=== PATIENT | female | born 1945 | race Caucasian/White ===

== ENCOUNTER → 2018-07-06 14:50 | Outpatient (CLI) | payer MEDICARE, BC, SELFPAY ==
--- NOTE | 2018-07-06 | DI.MG.S_ITS ---
BILATERAL DIGITAL SCREENING MAMMOGRAM 3D/2D WITH CAD: 07/06/2018 CLINICAL: Routine screening. Family history of breast cancer. Comparison is made to exams dated: 07/04/2017 mammogram, 07/02/2016 mammogram, and 06/06/2015 mammogram - [facility]. There are scattered fibroglandular elements in both breasts. Current study was also evaluated with a Computer Aided Detection (CAD) system. No significant masses, calcifications, or other findings are seen in either breast. There has been no significant interval change. IMPRESSION: NEGATIVE There is no mammographic evidence of malignancy. A 1 year screening mammogram is recommended. This exam was interpreted at Station ID: [id number]. NOTE: For mammograms, a report in lay terms will be sent to the patient. Approximately 15% of breast malignancies will not be visualized mammographically. In the management of a palpable breast mass, a negative mammogram must not discourage biopsy of a clinically suspicious lesion. Electronically Signed By: Ray bowens/joshua:07/07/2018 13:00:26 letter sent: Normal Exam ACR BI-RADS Category 1: Negative 3341F
== END ==
PROVIDERS: PCP Physician Assistant; Visit Provider Physician Assistant
DX: Z12.31 Encounter for screening mammogram for malignant neoplasm of breast (principal); Z80.3 Family history of malignant neoplasm of breast
CPT/HCPCS: 77063; 77067

== ENCOUNTER → 2018-09-22 07:51 | Outpatient (CLI) | payer MEDICARE, BC, SELFPAY ==
[2018-09-22 08:54] LABS: Add Manual Diff / Slide Review NO; Basophils Absolute Auto 100 /uL (0-100); Basophils Percent Auto 0.8 % (0-2); Eosinophils Absolute Auto 200 /uL (0-450); Eosinophils Percent Auto 2.9 % (2-4); Hematocrit 42.2 % (36-46); Hemoglobin 14.2 g/dL (12.0-16.0); Lymphocytes Absolute Auto 1800 /uL (1100-4500); Lymphocytes Percent Auto 29.5 % (25-40); Mean Corpuscular HGB Conc 33.7 % (30-36); Mean Corpuscular Hemoglobin 29.9 PG (26-34); Mean Corpuscular Volume 88.8 fL (80-100); Monocytes Absolute Auto 700 /uL (0-900); Monocytes Percent Auto 10.8 % (3-14); Neutrophils Absolute Auto 3400 /uL (1500-7000); Platelet Count 336 X10^3/uL (150-400); Red Blood Cell Count 4.75 X10^6/uL (4.0-5.2); Red Cell Distribution Width 13.7 % (11.6-14.8); White Blood Cell Count 6.1 X10^3/uL (4.5-11.0)
[2018-09-22 09:08] LABS: Alanine Aminotransferase 20 IU/L (9-52); Albumin 4.7 g/dL (3.5-5.0); Albumin Globulin Ratio 1.5 (1.0-2.8); Alkaline Phosphatase 110 U/L (38-126); Aspartate Aminotransferase 22 IU/L (14-36); BUN Creatinine Ratio 35.7 (6-22); Bilirubin Total 0.6 mg/dL (0.2-1.3); Blood Urea Nitrogen 25 mg/dL (7-17); Calcium 9.6 mg/dL (8.4-10.2); Carbon Dioxide 29 mmol/L (22-32); Chloride 104 mmol/L (98-107); Cholesterol 204 mg/dL (140-199); Estimated Glomerular Filt Rate > 60.0 mL/min (>60); Globulin 3.2 g/dL (1.7-4.1); Glucose 105 mg/dL (80-110); HDL Cholesterol 49 mg/dL (40-60); HEMOLYSIS < 15 (0-50); LDL Cholesterol Calculated 115 mg/dL (<100); Potassium 4.1 mmol/L (3.4-5.1); Sodium 141 mmol/L (137-145); Total Protein 7.9 g/dL (6.3-8.2); Triglycerides 198 mg/dL (35-150)
[2018-09-22 09:38] LABS: Thyroid Stimulating Hormone 1.86 uIU/mL (0.47-4.68)
== END ==
PROVIDERS: PCP Physician Assistant; Visit Provider Physician Assistant
DX: I10 Essential (primary) hypertension (principal); E78.5 Hyperlipidemia, unspecified; E03.9 Hypothyroidism, unspecified
CPT/HCPCS: 36415; 80053; 80061; 84443; 85025

== ENCOUNTER → 2019-01-11 12:20 | Outpatient (CLI) | payer MEDICARE, BC, SELFPAY ==
[2019-01-11 12:34] LABS: RBC Urine None Seen (0-5/HPF)
[2019-01-11 13:05] LABS: Add Manual Diff / Slide Review NO; Basophils Absolute Auto 0 /uL (0-100); Basophils Percent Auto 0.6 % (0-2); Eosinophils Absolute Auto 100 /uL (0-450); Eosinophils Percent Auto 0.9 % (2-4); Hematocrit 40.2 % (36-46); Hemoglobin 13.8 g/dL (12.0-16.0); Lymphocytes Absolute Auto 1600 /uL (1100-4500); Lymphocytes Percent Auto 20.4 % (25-40); Mean Corpuscular HGB Conc 34.3 % (30-36); Mean Corpuscular Hemoglobin 30.5 PG (26-34); Mean Corpuscular Volume 89.1 fL (80-100); Monocytes Absolute Auto 700 /uL (0-900); Monocytes Percent Auto 9.5 % (3-14); Neutrophils Absolute Auto 5400 /uL (1500-7000); Neutrophils Percent Auto 68.6 % (50-75); Platelet Count 301 X10^3/uL (150-400); Red Blood Cell Count 4.52 X10^6/uL (4.0-5.2); Red Cell Distribution Width 12.9 % (11.6-14.8); White Blood Cell Count 7.8 X10^3/uL (4.5-11.0)
[2019-01-11 13:26] LABS: Alanine Aminotransferase 25 IU/L (<35); Albumin 4.8 g/dL (3.5-5.0); Albumin Globulin Ratio 1.8 (1.0-2.8); Alkaline Phosphatase 124 U/L (38-126); Aspartate Aminotransferase 25 IU/L (14-36); BUN Creatinine Ratio 33.8 (6-22); Bilirubin Total 0.5 mg/dL (0.2-1.3); Blood Urea Nitrogen 27 mg/dL (7-17); Calcium 9.9 mg/dL (8.4-10.2); Carbon Dioxide 29 mmol/L (22-32); Chloride 104 mmol/L (98-107); Cholesterol 224 mg/dL (140-199); Estimated Glomerular Filt Rate > 60.0 mL/min (>60); Globulin 2.7 g/dL (1.7-4.1); Glucose 103 mg/dL (80-110); HDL Cholesterol 41 mg/dL (40-60); HEMOLYSIS < 15 (0-50); LDL Cholesterol Calculated 123 mg/dL (<100); Potassium 4.3 mmol/L (3.4-5.1); Sodium 142 mmol/L (137-145); Total Protein 7.5 g/dL (6.3-8.2); Triglycerides 298 mg/dL (35-150)
[2019-01-11 13:36] LABS: Appearance Urine UA CLEAR; Bilirubin Urine UA NEGATIVE (NEGATIVE); Color Urine UA YELLOW; Glucose Urine UA NEGATIVE (Negative); Ketones Urine UA NEGATIVE (NEGATIVE); Leukocyte Esterase Urine UA 1+ (NEGATIVE); Nitrite Urine UA NEGATIVE (Negative); Occult Blood Urine UA NEGATIVE (Negative); Protein Urine UA NEGATIVE (Negative); Specific Gravity Urine UA <=1.005 (1.000-1.035); Urobilinogen Urine UA 0.2 E.U./dL (0.2)
[2019-01-11 14:06] LABS: pH Urine UA 5.5 (4.5-8.0)
[2019-01-11 14:18] LABS: TSH w/ Reflex to FT4 1.23 uIU/mL (0.47-4.68)
[2019-01-11 14:19] LABS: Amorphous Sediment Urine 1+; Bacteria Urine Few (2-10); Culture Indicated Urine Specimen Cultured; Squamous Epithelial Cell Urine 1-5 /HPF (0-5/HPF); WBC Urine 1-5/HPF (0-5/HPF)
[2019-01-11 16:54] LABS: Protein (Total) Urine Random 10 mg/dL (0-12); Protein Creatinine Ratio Urine 0.19 GRAM/24H
[2019-01-15 12:03] LABS: Aldosterone/Renin Activity Rat 12.5 Ratio (0.9-28.9)
== END ==
PROVIDERS: PCP Physician Assistant; Visit Provider Physician Assistant
DX: I70.1 Atherosclerosis of renal artery (principal); I10 Essential (primary) hypertension; E78.2 Mixed hyperlipidemia; E03.9 Hypothyroidism, unspecified
CPT/HCPCS: 36415; 80053; 80061; 81001; 82088; 82570; 84156; 84244; 84443; 85025; 87086

== ENCOUNTER → 2019-09-23 11:42 | Outpatient (CLI) | payer MEDICARE, OTHER, SELFPAY ==
--- NOTE | 2019-09-23 | DI.MG.S_ITS ---
BILATERAL DIGITAL SCREENING MAMMOGRAM 3D/2D WITH CAD: 09/23/2019 CLINICAL: Routine screening. Family history of breast cancer. Comparison is made to exams dated: 07/06/2018 mammogram - [facility], 07/04/2017 mammogram, and 07/02/2016 mammogram - [facility]. There are scattered fibroglandular elements in both breasts. Current study was also evaluated with a Computer Aided Detection (CAD) system. No significant masses, calcifications, or other findings are seen in either breast. There has been no significant interval change. IMPRESSION: NEGATIVE There is no mammographic evidence of malignancy. A 1 year screening mammogram is recommended. This exam was interpreted at Station ID: [id number]. NOTE: For mammograms, a report in lay terms will be sent to the patient. Approximately 15% of breast malignancies will not be visualized mammographically. In the management of a palpable breast mass, a negative mammogram must not discourage biopsy of a clinically suspicious lesion. Electronically Signed By: Herve burch/joshua:09/23/2019 16:40:27 letter sent: Normal Exam ACR BI-RADS Category 1: Negative 3341F
== END ==
PROVIDERS: PCP Physician Assistant; Referring Provider Physician Assistant; Visit Provider Physician Assistant
DX: Z12.31 Encounter for screening mammogram for malignant neoplasm of breast (principal); Z80.3 Family history of malignant neoplasm of breast
CPT/HCPCS: 77063; 77067

== ENCOUNTER → 2019-10-16 14:49 | Outpatient (CLI) | payer MEDICARE, OTHER, SELFPAY ==
[2019-10-17 19:20] LABS: COVID19 Sendout Not Detected (Not Detect)
== END ==
PROVIDERS: PCP Physician Assistant; Visit Provider Nurse Practitioner
DX: Z11.59 Encounter for screening for other viral diseases (principal)
CPT/HCPCS: 87635

== ENCOUNTER 2019-10-19 08:48 | Day surgery (SDC) | payer MEDICARE, OTHER, SELFPAY ==
[2019-10-19] VITALS (7 sets, daily range): BP systolic 98–159; BP diastolic 51–79; PULSE 65–85; RESP 10–20; TEMP 36.6–37.1; O2SAT 95–99; BMI 26.6
[2019-10-19] MEDS: LACTATED RINGERS 1,000 ML 150 ML IV (09:25)
--- NOTE | 2019-10-19 09:49 | PM.HP.1 ---
History of Present Illness History of Present Illness Date Patient Seen: 10/19/19 Time Patient Seen: 09:35 Chief complaint: SCREENING COLONOSCOPY Narrative: The patient is a woman here for screening colonoscopy. Her last exam was 6 years ago. She has a personal history of polyps Patient History Medical History (Updated 10/19/19 @ 09:50 by Nayan Rome MD) Hypertension (Acute) Hypothyroidism (acquired) (Acute) Surgical History Status post tubal ligation Family & Social History Social History: household members spouse Tobacco & Substance use: Smoking Status Never smoker alcohol intake frequency a few times a week Substance Use Type does not use Meds Home Medications and Allergies Home Medications Medication Instructions Recorded Confirmed Type CA PANTOTHENATE/FOLIC ACID/VIT 1 tab PO QDAY #0 01/15/11 History (MULTIVITAMIN) meloxicam [Mobic] 7.5 mg PO AMCC #90 01/21/11 10/19/19 Rx lorazepam [Ativan] 0.5 mg PO PRN #30 02/04/12 10/19/19 Rx metoprolol succinate [Toprol XL] 200 mg PO QDAY #90 02/04/12 10/19/19 Rx levothyroxine 200 mcg PO QDAY #90 06/12/12 10/19/19 Rx AMLODIPINE BESYLATE (#NORVASC) 7.5 mg PO QDAY 10/19/19 10/19/19 History Allergies Allergy/AdvReac Type Severity Reaction Status Date / Time Sulfa (Sulfonamide Allergy Severe THROAT Unverified 06/04/17 11:46 Antibiotics) SWELLING Penicillins Allergy Intermediate HIVES Unverified 06/04/17 11:46 adhesive Allergy Mild Rash Unverified 10/19/19 09:05 hydrochlorothiazide AdvReac Mild RASH Unverified 10/19/19 09:05 pravastatin AdvReac Mild MUSCLE PAIN Unverified 06/04/17 11:46 simvastatin AdvReac Mild VOMITING Unverified 06/04/17 11:46 Review of Systems Review of Systems Narrative: Very hard of hearing. Wears hearing aids. ROS: Yes All systems reviewed with the patient and are negative except as otherwise documented Exam Vital Signs (past 8 hours): - 10/19/19 09:10 Temperature 97.8 F Pulse Rate 78 Respiratory Rate 16 Blood Pressure 152/76 H Pulse Oximetry 99 Oxygen Delivery Method Room Air Narrative Exam Narrative: Pleasant cooperative patient no apparent distress. Lungs are clear to auscultation. No rales or rhonchi. Heart regular rate and rhythm no murmur gallop. Abdomen is soft nontender without mass. No obvious hernias. Patient is alert and oriented x3. Assessment & Plan Assessment & Plan narrative: The patient for a screening colonoscopy. I have discussed the procedure with them. Risks of bleeding, perforation which would necessitate major operation, failure to find remove all lesions, the potential tattoo were all discussed. All questions were answered. They wished to proceed.
--- NOTE | 2019-10-19 09:51 | PM.PREOP ---
Pre-operative Note COVID-19 COVID-19 status: Negative Result date/Date tested (Pos, Neg/Pending): 10/16/19 Interval Note History & Physical reviewed/Exam performed by Physician: Yes Changes to H&P: No ASA Class (for procedural sedation): II
[2019-10-19] MEDS: fentaNYL 250 MCG/5 ML INJ IV (10:07)
[2019-10-19] MEDS: MIDAZOLAM 5 MG/5 ML VIAL IV (10:07)
--- NOTE | 2019-10-19 10:24 | PM.OP.ENDO ---
Operative Date/Time/Diagnoses Date of procedure: 10/19/19 Time of procedure: 10:24 Pre-op diagnosis: History of polyps Post-op diagnosis: same Procedure & Clinicians Study performed: Colonoscopy Same procedure as scheduled: Yes Indications: Screening. History of polyps. Last exam 6 years ago. Surgeon: Nayan Rome Procedure Notes SCOAP/Timeout: Performed Procedure in detail: The patient was placed in the left lateral decubitus position and underwent IV sedation directed by the surgeon consisting of fentanyl and Versed. Digital exam was unremarkable. The scope was inserted and advanced through the rectum into the sigmoid, descending, transverse, and ascending colon. The patient had some tortuosity which required applying pressure to her abdominal wall in order to reach the cecum.. The cecum was reached identified by the ileocecal valve and the appendiceal opening. The ileocecal valve was briefly cannulated. The terminal ileum was normal in appearance. The scope was gradually brought out. No Polyps were found. The scope ultimately was retroflexed in the rectum. The appearance was remarkable for internal hemorrhoids without ulceration.. The scope was removed and the patient tolerated the procedure well. The prep was very good Scope withdrawal time: 8 minutes Sedation minutes: 29 Specimen(s): none sent Complications: none Impression: Normal exam Post-procedure Recommendations: Colonscopy in 5 years (Due to history of polyps) Follow up: as needed Disposition: PACU
--- NOTE | 2019-10-19 10:50 | SUR.PHASEI ---
report and handover to Allison
== END 2019-10-19 11:10 | disposition home or self-care (01) ==
PROVIDERS: PCP Physician Assistant; Referring Provider Physician Assistant; Visit Provider Specialist
PROC: 0DJD8ZZ Inspection of Lower Intestinal Tract, Via Natural or Artificial Opening Endoscopic (ICD-10-PCS; CPT 45378; principal; 2019-10-19 09:45)
DX: Z12.11 Encounter for screening for malignant neoplasm of colon (principal); Z86.010 Personal history of colon polyps; K64.8 Other hemorrhoids; I10 Essential (primary) hypertension; E03.9 Hypothyroidism, unspecified
CPT/HCPCS: G0105; 99152; 99153; J2250; J3010

== ENCOUNTER → 2019-11-30 11:33 | Outpatient (CLI) | payer MEDICARE, OTHER, SELFPAY ==
[2019-12-01 07:47] LABS: COVID19 Sendout Not Detected (Not Detect)
== END ==
PROVIDERS: PCP Physician Assistant; Visit Provider Physician Assistant
DX: Z11.59 Encounter for screening for other viral diseases (principal)
CPT/HCPCS: 87635

== ENCOUNTER 2019-12-03 09:36 | Day surgery (SDC) | payer MEDICARE, OTHER, SELFPAY ==
[2019-12-02 13:44] VITALS: BMI 26.8
[2019-12-03] VITALS (14 sets, daily range): BP systolic 133–172; BP diastolic 54–90; PULSE 68–88; RESP 9–19; TEMP 35.9–37.2; O2SAT 93–98; BMI 26.8
[2019-12-03] MEDS: LACTATED RINGERS 1,000 ML 100 ML IV ×2 (10:15→14:20)
--- NOTE | 2019-12-03 11:40 | PM.PREOP ---
Pre-operative Note COVID-19 COVID-19 status: Negative Result date/Date tested (Pos, Neg/Pending): 11/30/19 Interval Note History & Physical reviewed/Exam performed by Physician: Yes Changes to H&P: No
[2019-12-03] MEDS: CEFAZOLIN 2 GM/100 ML FROZ.PIGGY IV (12:06)
--- NOTE | 2019-12-03 12:35 | SUR.OPER ---
Lithotomy on padded OR bed, head on pillow, arms secured on padded arm boards at <90 degrees abduction. Legs secured in padded yellow fins stirrups.
[2019-12-03] MEDS: BUPIVACAINE 0.5% W/ EPI (PF) 30 ML VIAL INJ (12:54)
[2019-12-03] MEDS: SODIUM CHLORIDE 0.9% FLUSH 10 ML IV (12:55)
--- NOTE | 2019-12-03 13:14 | P.OP_ITS ---
Operative Date/Time/Diagnoses Date of procedure: 12/03/19 Time of procedure: 13:15 Pre-op diagnosis: Uterovaginal prolapse Post-op diagnosis: same Procedure & Clinicians Procedure: Anterior and posterior repair with sacrospinous ligament fixation Same procedure as scheduled: Yes Indications: Symptomatic uterovaginal prolapse Surgeon: Jaimie Worley Aquaculture Farmer: Aissatou Bruce Anesthesia Type: General Operative Notes Findings: First-degree cystocele, first-degree rectocele, prolapse of the uterus to 1 cm from the hymen. Closure Type: primary Specimen(s): none sent Applied: catheter (Oconnell) and other (Vaginal packing) Estimated Blood Loss (mL): 20 Blood products transfused: none Procedure in detail: Patient was brought to the operating room where she underwent general anesthesia. She was placed in low Yellofin stirrups and prepped and draped in the usual sterile fashion. Warming was in place. 2 g of Ancef were in prior to beginning of the case. Pulsatile stockings were in place and functional. A check system was reviewed with the staff in the room prior to beginning the case. A Oconnell catheter was placed. The area of the cystocele and the rectocele was injected with a dilute solution of Marcaine with epinephrine. Incision was made over the cystocele with a scalpel. Dissection was undertaken laterally with sharp and blunt dissection. Plicating sutures of 0 Vicryl suture were placed. The vaginal incision was repaired with running 2 0 Vicryl suture. An incision was made over the rectocele with a scalpel. Dissection was undertaken laterally. 0 Prolene suture with the Capio passer was placed through the uterosacral ligament on the right side and sutured to the underside of the cervix. A suture of 0 Prolene was also placed through the uterosacral ligament on the left side and sutured to the underside of the vaginal tissue on the left. A finger was placed in the rectum to be sure there were no sutures placed through the rectal mucosa. The uterosacral sutures were tightened down and the vaginal incision was closed with 2-0 Vicryl suture. Vaginal packing was placed in the vagina and the Oconnell left in place. Patient went to recovery room in good condition. Complications: none Post-operative Condition: stable Disposition: observation (Vaginal packing and Oconnell will be removed in a.m.. Home after bladder trial) Plan for aftercare: Remove Oconnell and vaginal packing in a.m. and check postvoid residual. Home after.
--- NOTE | 2019-12-03 15:47 | PC.NURSE ---
Day Shift- Report rec'd from PACU by DIGNA Welsh Coordinator. Pt arrived to unit room 202 at 1350 via bed, unwitnessed by this RN. DIGNA Welsh Coordinator at bedside handoff with PACU. Pt seen by this RN at 1420. A&OX4, oriented to call light. Rates 2/10 pelvic pressure, denies nausea, shortness of breath, chest pain or pressure. Urinary catheter in place draining clear light yellow urine, vaginal packing in place. Peripad under pelvic area with small amount of light colored yellow drainage. Calf SCD's on to BLE, pt instructed to perform ankle waves. IVF started per order to right wrist PIV. Pt has tolerated water and crackers. Pt's Tam in room, instructed to keep mask on at all times while visiting. No other voiced concerns, call light within reach.
[2019-12-03] MEDS: DOCUSATE 250 MG CAPSULE PO (20:44)
[2019-12-03] MEDS: OXYCODONE/ACETAMINOPHEN 5/325 TABLET 2 TAB PO (23:52)
[2019-12-04] MEDS: LORazepam 0.5 MG TABLET PO (00:56)
[2019-12-04 01:00] VITALS: O2SAT 93
[2019-12-04] MEDS: LEVOTHYROXINE 100 MCG TABLET 200 MCG PO (05:22)
[2019-12-04] MEDS: OXYCODONE/ACETAMINOPHEN 5/325 TABLET 2 TAB PO (05:29)
[2019-12-04 05:49] VITALS: BP 136/75; PULSE 76; RESP 16; TEMP 36.2; O2SAT 96
[2019-12-04 07:30] VITALS: O2SAT 97
[2019-12-04 08:00] VITALS: BP 147/71; PULSE 80; RESP 18; TEMP 36.7; O2SAT 96
--- NOTE | 2019-12-04 08:44 | PM.DS.1 ---
History of Present Illness History of Present Illness Date Patient Seen: 12/04/19 Time Patient Seen: 08:44 Date of Onset of Symptoms: 12/04/19 Chief complaint: ANTERIOR/POSTERIOR REPAIR, SACROSPINOUS *OPB* Narrative: Patient underwent a anterior and posterior repair with sacrospinous ligament fixation for partial uterovaginal prolapse. Discharge Providers Provider Discharge Date: 12/04/19 Primary care physician: Maria Eugenia Barreto PA-C Discharge provider: Jaimie Worley MD Summary Hospital Course Discharge Diagnosis: Partial uterovaginal prolapse Hospital Course: Patient underwent an anterior and posterior repair with sacrospinous ligament fixation on 12/03/2019. She had vaginal packing and Oconnell catheter placed postoperative. The packing and catheter removed on 12/04/2019. Patients post void residual was 15cc. Status at Discharge Cognitive/behavioral status at discharge: oriented Functional status at discharge: independent ambulation Overall status at discharge: patient is progressing back to baseline Time Spent with Patient Time spent: Less than 30 minutes Exam Vital Signs (past 8 hours): - 12/04/19 01:00 12/04/19 05:49 Temperature 97.2 F L Pulse Rate 76 Respiratory Rate 16 Blood Pressure 136/75 Pulse Oximetry 93 96 Oxygen Delivery Method Room Air Oxygen Flow Rate 0 Narrative Exam Narrative: Patient's abdomen is soft, nontender. Vaginal packing was removed and had only a small amount of blood on it. Extremities without edema and nontender. Objective Labs Result Diagrams: 12/04/19 07:30 Discharge Assessment & Plan Assessment and Plan Assessment: Partial uterovaginal prolapse status post anterior and posterior repair with sacrospinous ligament fixation Discharge Plan Discharge Plan Patient Disposition: Home Discharge Med Rec/Prescriptions Prescriptions: Continued meloxicam [Mobic] 7.5 MG tablet 7.5 mg PO AMCC Qty: 90 RF: 3 metoprolol succinate [Toprol XL] 200 MG tablet extended release 24 hr 200 mg PO QDAY Qty: 90 RF: 3 lorazepam [Ativan] 0.5 MG tablet 0.5 mg PO PRN Qty: 30 RF: 3 levothyroxine 200 MCG tablet 200 mcg PO QDAY Qty: 90 RF: 3 atorvastatin 40 mg tablet 40 mg PO DAILY RF: 0 multivitamin Tablet 1 tab PO DAILY RF: 0 oxycodone-acetaminophen 5-325 mg tablet 2 tab PO Q4-6H PRN (Reason: pain) Qty: 30 RF: 0 amlodipine 5 mg Tablet 7.5 mg PO DAILY Qty: 0 RF: 0 Follow up/Referrals: Maria Eugenia Barreto PA-C [Primary Care Provider] - Jaimie Worley MD [Physician] - As previously scheduled Discharge Orders: Discharge (Order); Ordered 12/04/19 Ordered By: Jaimie Worley Provider Discharge Instructions Diet: Regular Activity: No lifting over 20 lb or anything in vagina for 6 weeks Skin/Wound/Dressing Care Report to your healthcare provider any signs of infection, such as:: chills, fever and increased pain Visit Report/Discharge Packet Instructions: DI for Cystocele and Rectocele Repair, DI for Constipation, How to Prevent Falls, DI for Sacrospinous Fixation Discharge Data Primary Care Provider: Maria Eugenia Barreto Attending Provider: Jaimie Worley
[2019-12-04] MEDS: MELOXICAM 7.5 MG TABLET PO (08:49)
[2019-12-04] MEDS: METOPROLOL ER 50 MG TABLET 200 MG PO (08:49)
[2019-12-04] MEDS: DOCUSATE 250 MG CAPSULE PO (08:50)
[2019-12-04 08:55] LABS: Add Manual Diff / Slide Review NO; Basophils Absolute Auto 0 /uL (0-100); Basophils Percent Auto 0.1 % (0-2); Eosinophils Absolute Auto 0 /uL (0-450); Hemoglobin 12.5 g/dL (12.0-16.0); Lymphocytes Absolute Auto 1400 /uL (1100-4500); Lymphocytes Percent Auto 8.8 % (25-40); Mean Corpuscular HGB Conc 33.8 % (30-36); Mean Corpuscular Hemoglobin 31.2 PG (26-34); Mean Corpuscular Volume 92.4 fL (80-100); Monocytes Absolute Auto 1000 /uL (0-900); Monocytes Percent Auto 6.6 % (3-14); Neutrophils Absolute Auto 13200 /uL (1500-7000); Neutrophils Percent Auto 84.5 % (50-75); Platelet Count 319 X10^3/uL (150-400); Red Cell Distribution Width 12.5 % (11.6-14.8); White Blood Cell Count 15.7 X10^3/uL (4.5-11.0)
--- NOTE | 2019-12-04 09:29 | CM.DANOTE ---
Patient is a 74 year old female who was admitted on 12/03/19 for Vaginal Prolapse surgery. Pt has M[place] and [place] for [place] and her PCP is Maria Eugenia ZURITA. EMR was reviewed. Per MD, pt tolerated procedure well and medically stable to d/c later today and meyer cath removed to determine if pt can void independently or will need to d/c with cath. SW met bedside with patient and explained role and she confirms she lives at home in [place] with spouse and is quite active and independent at baseline and states spouse and family can assist at d/c if needed. Pt denies any hx of HH or SNF and does not feel she will have needs at d/c and comfortable with d/c home later today with or without meyer cath. Plan: SW to follow for pt d/c home later today via spouse POV and possible meyer cath. No SW needs at this time. ZARINA Jaffe Discharge Planning/Care Management CM Discharge Assessment Start: 12/04/19 09:24 Freq: Status: Active Protocol: Document 12/04/19 09:25 BF (Rec: 12/04/19 09:29 BF [id number]) Discharge Planning Assessment Assigned Concrete Vibrator Operator ZARINA Schultz DPOA/Assigned Designee Name spouse Tam Contact Information [phone] Advance Directives? No Advance Directives on File No History Provided By Patient,Medical Record Has Patient been admitted in last 30 No days? Prior Living Arrangements House Household Members spouse Type of transporation used prior to Drives own vehicle admit Independent with ADL's Yes Is patient alert and oriented? Yes Caregiver for Another No Comment Home no needs Barriers to Discharge No Discharge Plan Home Transportation Arrangement Pt's spouse to provide transport home Referrals Initiated None needed Whiteboard Updated in Patient Room with Yes name and ext. # of Concrete Vibrator Operator Review Status In Process Please Provide Date Initial DC 12/04/19 Assessment Was Performed Next Review Type Continued Stay Review Pre-Anesthesia Assessment Start: 12/02/19 13:44 Freq: Status: Complete Protocol: Document 12/02/19 13:44 CAB (Rec: 12/02/19 13:51 CAB [id number]) Pre-Anesthesia Assessment Patient Information Reviewed Via Chart Review Comment COVID screen @ 11/30/19 Negative Primary Care Provider Maria Eugenia Barreto Seen Specialist in Last 12 Months Yes Specialist Seen General surgeon,Sheet Turner Primary Language Singaporean Java Developer Required No Height 165.1 cm Weight 73.028 kg Body Mass Index (BMI) 26.8 Hearing Ability Hard of Hearing,Use of Hearing Aid Barriers to Learning None Hx Anesthesia Reactions No Hx Family Anesthesia Reaction No Hx Malignant Hyperthermia No Hx Blood Transfusion Reaction No Anesthesia Review Requested No Cnc Machinist No alcohol intake current alcohol intake frequency a few times a week Smoking Status Never smoker Substance Use Type does not use Patient is completely paralyzed or No completely immobile Mental Status Oriented to own ability Is patient on oxygen? No Does patient have VERA/SOB No Hx Sleep Apnea No CPAP/BIPAP use not prescribed Currently Taking a Beta Waldemar Yes: Metoprolol Hx Chest Pain No Hx SOB No Hx Syncope or Dizziness No Anti-Coagulant Therapy No Has a Cleat Thrower No Cardiac Testing No Hx Pacemaker/ICD No Pacemaker Rep Required? No Cardiac Clearance Received Not Applicable Bladder Pattern Incontinent, Stress,Urgency Urinary Catheter Present No Hx Urinary Self Catheterization No Diabetes No Patient No Lactating No Presence of External or Internal Medical Yes: bilateral eye lens Devices Have you had any close contact with Unknown someone diagnosed with COVID-19? Marital Status Lives With spouse Patient Discharge Plan Description Return Home Advance Directives? No Power of Sprinkling System Irrigator No
--- NOTE | 2019-12-04 13:42 | PC.NURSE ---
Discharge: Pt feels ready to d/c home. Has been seen by Dr. Worley and given discharge instructions. Dr. Worley removed vag packing and meyer. Pt able to vd 400mls and PVR was 21. Diet tolerated w/out problems. Minimal pain at present, meds offered and refused. Already has rx at home. Up in room w/out problems. Discharged packet reviewed. Questions answered. Pt voiced no concerns about going home.
== END 2019-12-04 11:40 | disposition home or self-care (01) ==
LOC: OR 13:54 → AC 13:54
PROVIDERS: PCP Physician Assistant; Referring Provider Specialist; Visit Provider Specialist
PROC: (CPT 57282; principal; 2019-12-03 10:45)
DX: N81.2 Incomplete uterovaginal prolapse (principal); R39.15 Urgency of urination; I10 Essential (primary) hypertension; E03.9 Hypothyroidism, unspecified
CPT/HCPCS: 57282; 57260; 36415; 85025; J0690; J1100; J1885; J2405; J2704; J3010

== ENCOUNTER → 2020-01-17 07:46 | Outpatient (CLI) | payer MEDICARE, OTHER, SELFPAY ==
[2019-12-03 14:26] VITALS: BMI 26.8
[2020-01-17 08:55] LABS: Add Manual Diff / Slide Review NO; Basophils Absolute Auto 0 /uL (0-100); Basophils Percent Auto 0.6 % (0-2); Eosinophils Absolute Auto 200 /uL (0-450); Eosinophils Percent Auto 2.6 % (2-4); Hematocrit 39.3 % (36-46); Hemoglobin 13.1 g/dL (12.0-16.0); Lymphocytes Absolute Auto 1900 /uL (1100-4500); Lymphocytes Percent Auto 29.4 % (25-40); Mean Corpuscular HGB Conc 33.4 % (30-36); Mean Corpuscular Hemoglobin 30.2 PG (26-34); Mean Corpuscular Volume 90.6 fL (80-100); Monocytes Absolute Auto 700 /uL (0-900); Monocytes Percent Auto 10.7 % (3-14); Neutrophils Absolute Auto 3700 /uL (1500-7000); Neutrophils Percent Auto 56.7 % (50-75); Platelet Count 283 X10^3/uL (150-400); Red Blood Cell Count 4.34 X10^6/uL (4.0-5.2); Red Cell Distribution Width 13.1 % (11.6-14.8); White Blood Cell Count 6.6 X10^3/uL (4.5-11.0)
[2020-01-17 09:23] LABS: Alanine Aminotransferase 29 IU/L (<35); Albumin 4.1 g/dL (3.5-5.0); Albumin Globulin Ratio 1.5 (1.0-2.8); Alkaline Phosphatase 107 U/L (38-126); Aspartate Aminotransferase 26 IU/L (14-36); Bilirubin Total 0.4 mg/dL (0.2-1.3); Blood Urea Nitrogen 24 mg/dL (7-17); Calcium 9.3 mg/dL (8.4-10.2); Carbon Dioxide 29 mmol/L (22-32); Chloride 107 mmol/L (98-107); Cholesterol 169 mg/dL (140-199); Estimated Glomerular Filt Rate > 60.0 mL/min (>60); Globulin 2.7 g/dL (1.7-4.1); Glucose 106 mg/dL (80-110); HDL Cholesterol 45 mg/dL (40-60); HEMOLYSIS < 15 (0-50); LDL Cholesterol Calculated 92 mg/dL (<100); Potassium 4.2 mmol/L (3.4-5.1); Sodium 138 mmol/L (137-145); Total Protein 6.8 g/dL (6.3-8.2); Triglycerides 160 mg/dL (35-150)
== END ==
PROVIDERS: PCP Physician Assistant; Referring Provider Physician Assistant; Visit Provider Physician Assistant
DX: E03.9 Hypothyroidism, unspecified (principal); I10 Essential (primary) hypertension; E78.2 Mixed hyperlipidemia
CPT/HCPCS: 36415; 80053; 80061; 84443; 85025

== ENCOUNTER → 2020-05-12 13:07 | Outpatient (CLI) | payer MEDICARE, OTHER, SELFPAY ==
[2019-12-03 14:26] VITALS: BMI 26.8
--- NOTE | 2020-05-12 | DI.MRI.S_ITS ---
PROCEDURE: MR KNEE RT WO CON INDICATIONS: Unilateral primary osteoarthritis, right knee TECHNIQUE: Noncontrast sagittal PD fast spin echo and T2 fast spin echo with fat saturation, sagittal 3-D FLASH with fat saturation; coronal T1 spin echo and PD fast spin echo with fat saturation, and axial PD fast spin echo with fat saturation through the knee. COMPARISON: [facility], CR, XR KNEE 4+ VIEWS RIGHT, 04/05/2020, 11:24. FINDINGS: Image quality: Excellent. Menisci: There is a horizontal oblique tear in the posterior horn and body of the medial meniscus extending to the middle third of the tibial articular surface. There is hyperintense signal in the anterior horn of the lateral meniscus with probable extension to the inner third of the tibial articular surface and a 4 x 3 mm parameniscal cyst along the nonarticular margin. Cruciate ligaments: The anterior and posterior cruciate ligaments appear intact. Medial structures: The medial collateral ligament appears intact. The semimembranosus tendon insertions and meniscocapsular junction appear intact. Visualized portions of the pes anserinus tendons appear normal. No abnormal bursal fluid. Lateral structures: The lateral collateral ligament, long and short heads of the biceps femoris tendon appear intact. The popliteus tendon appears intact. No signs of posterolateral corner injury. Iliotibial band appears normal. Anterior structures: There is mild patella rachel. The distal quadriceps tendon is intact. No femoral trochlear dysplasia or ventral trochlear prominence. No edema in the infrapatellar fat pad. Bones and cartilage: No bone marrow contusions or fractures. There is moderate partial-thickness cartilage thinning in the weight-bearing portion of the medial femorotibial compartment. Mild partial-thickness cartilage thinning and surface irregularity is seen in the lateral and anterior compartments. Joint space: There is a physiologic amount of joint fluid. No medial popliteal cyst is seen. IMPRESSION: 1. Horizontal oblique tear of the posterior horn and body of the medial meniscus extending to the middle third of the tibial articular surface. 2. Horizontal oblique tear of the anterior horn lateral meniscus extending to the inner third of the tibial articular surface with a 4 mm parameniscal cyst. 3. Grade 3 cartilage thinning in the weight-bearing portion of the medial femorotibial compartment. Mild grade 2-3 chondromalacia in the lateral and anterior compartments. 4. Mild patella rachel. Dictated by: Herve Vasquez M.D. on 05/12/2020 at 15:54 Approved by: Herve Vasquez M.D. on 05/12/2020 at 16:03
== END ==
PROVIDERS: PCP Physician Assistant; Referring Provider Orthopaedic Surgery; Visit Provider Orthopaedic Surgery
DX: M17.11 Unilateral primary osteoarthritis, right knee (principal); S83.241A Other tear of medial meniscus, current injury, right knee, initial encounter; S83.281A Other tear of lateral meniscus, current injury, right knee, initial encounter
CPT/HCPCS: 73721

== ENCOUNTER → 2020-07-25 11:04 | Outpatient (CLI) | payer MEDICARE, OTHER, SELFPAY ==
[2019-12-03 14:26] VITALS: BMI 26.8
[2020-07-25 11:30] LABS: COVID19 -Nasal RAPID Negative (Negative)
== END ==
PROVIDERS: PCP Physician Assistant; Visit Provider Physician Assistant
DX: Z20.822 Contact with and (suspected) exposure to COVID-19 (principal); J02.9 Acute pharyngitis, unspecified; R05 Cough; R09.81 Nasal congestion; R50.9 Fever, unspecified
CPT/HCPCS: 87635

== ENCOUNTER → 2020-12-07 09:13 | Outpatient (CLI) | payer MEDICARE, OTHER, SELFPAY ==
[2020-09-13 13:46] VITALS: BMI 26.8
--- NOTE | 2020-12-07 09:15 | DI.MG.S_ITS ---
BILATERAL DIGITAL SCREENING MAMMOGRAM 3D/2D WITH CAD: 12/07/2020 CLINICAL: Routine screening. Family history of breast cancer. Comparison is made to exams dated: 09/23/2019 mammogram, 07/06/2018 mammogram - [facility], and 07/04/2017 mammogram - [facility]. There are scattered fibroglandular elements in both breasts. Current study was also evaluated with a Computer Aided Detection (CAD) system. There are benign vascular calcifications in both breasts. No significant masses, calcifications, or other findings are seen in either breast. There has been no significant interval change. IMPRESSION: BENIGN There is no mammographic evidence of malignancy. A 1 year screening mammogram is recommended. This exam was interpreted at Station ID: [id number]. NOTE: For mammograms, a report in lay terms will be sent to the patient. Approximately 15% of breast malignancies will not be visualized mammographically. In the management of a palpable breast mass, a negative mammogram must not discourage biopsy of a clinically suspicious lesion. Electronically Signed By: Roderick bravo/joshua:12/07/2020 10:48:13 letter sent: Normal Exam ACR BI-RADS Category 2: Benign Finding(s) 3342F
== END ==
PROVIDERS: PCP Family Medicine; Referring Provider Physician Assistant; Visit Provider Physician Assistant
DX: Z12.31 Encounter for screening mammogram for malignant neoplasm of breast (principal); Z80.3 Family history of malignant neoplasm of breast
CPT/HCPCS: 77063; 77067

== ENCOUNTER → 2021-01-22 08:08 | Outpatient (CLI) | payer MEDICARE, OTHER, SELFPAY ==
[2020-09-13 13:46] VITALS: BMI 26.8
[2021-01-22 09:00] LABS: Add Manual Diff / Slide Review NO; Basophils Absolute Auto 100 /uL (0-100); Basophils Percent Auto 0.9 % (0-2); Eosinophils Absolute Auto 200 /uL (0-450); Eosinophils Percent Auto 2.3 % (2-4); Hematocrit 39.2 % (36-46); Hemoglobin 13.2 g/dL (12.0-16.0); Lymphocytes Absolute Auto 2600 /uL (1100-4500); Mean Corpuscular HGB Conc 33.7 % (30-36); Mean Corpuscular Volume 89.2 fL (80-100); Monocytes Absolute Auto 700 /uL (0-900); Monocytes Percent Auto 10.5 % (3-14); Neutrophils Absolute Auto 3100 /uL (1500-7000); Neutrophils Percent Auto 47.3 % (50-75); Platelet Count 351 X10^3/uL (150-400); Red Blood Cell Count 4.39 X10^6/uL (4.0-5.2); Red Cell Distribution Width 12.9 % (11.6-14.8); White Blood Cell Count 6.7 X10^3/uL (4.5-11.0)
[2021-01-22 09:31] LABS: Alanine Aminotransferase 25 IU/L (<35); Albumin 4.4 g/dL (3.5-5.0); Albumin Globulin Ratio 1.7 (1.0-2.8); Alkaline Phosphatase 91 U/L (38-126); Aspartate Aminotransferase 27 IU/L (14-36); BUN Creatinine Ratio 37.7 (6-22); Bilirubin Total 0.4 mg/dL (0.2-1.3); Blood Urea Nitrogen 26 mg/dL (7-17); Calcium 9.3 mg/dL (8.4-10.2); Carbon Dioxide 27 mmol/L (22-32); Chloride 105 mmol/L (98-107); Cholesterol 195 mg/dL (140-199); Estimated Glomerular Filt Rate > 60.0 mL/min (>60); Globulin 2.6 g/dL (1.7-4.1); Glucose 109 mg/dL (80-110); HDL Cholesterol 42 mg/dL (40-60); HEMOLYSIS < 15 (0-50); LDL Cholesterol Calculated 107 mg/dL (<100); Sodium 142 mmol/L (137-145); Triglycerides 230 mg/dL (35-150)
[2021-01-22 09:37] LABS: Microalbumi Creatinin Ratio Ur 37.5 ug/mg CR (<30); Microalbumin Urine Random 3.9 mg/dL (0-1.6)
[2021-01-22 10:00] LABS: TSH w/ Reflex to FT4 2.24 uIU/mL (0.47-4.68)
== END ==
PROVIDERS: PCP Family Medicine; Referring Provider Family Medicine; Visit Provider Family Medicine
DX: E03.9 Hypothyroidism, unspecified (principal); I10 Essential (primary) hypertension; E78.5 Hyperlipidemia, unspecified
CPT/HCPCS: 36415; 80053; 80061; 82043; 82570; 84443; 85025

== ENCOUNTER → 2021-07-27 14:18 | Outpatient (CLI) | payer MEDICARE, OTHER, SELFPAY ==
[2020-09-13 13:46] VITALS: BMI 26.8
[2021-07-27 15:38] LABS: Creatinine Urine Random 108.4 mg/dL
[2021-07-27 15:40] LABS: Microalbumi Creatinin Ratio Ur 13.8 ug/mg CR (<30); Microalbumin Urine Random 1.5 mg/dL (0-1.6)
== END ==
PROVIDERS: PCP Family Medicine; Referring Provider Family Medicine; Visit Provider Family Medicine
DX: E03.9 Hypothyroidism, unspecified (principal); I10 Essential (primary) hypertension; R80.9 Proteinuria, unspecified
CPT/HCPCS: 82043; 82570

== ENCOUNTER → 2021-12-18 15:51 | Outpatient (CLI) | payer MEDICARE, OTHER, SELFPAY ==
[2020-09-13 13:46] VITALS: BMI 26.8
--- NOTE | 2021-12-18 15:52 | DI.MG.S_ITS ---
BILATERAL DIGITAL SCREENING MAMMOGRAM 3D/2D WITH CAD: 12/18/2021 CLINICAL: Routine screening. Family history of breast cancer. Comparison is made to exams dated: 12/07/2020 mammogram, 09/23/2019 mammogram, and 07/06/2018 mammogram - [facility]. There are scattered areas of fibroglandular density in both breasts (category b / 25%-50% glandular tissue). Current study was also evaluated with a Computer Aided Detection (CAD) system. There are benign vascular calcifications in both breasts. No significant masses, calcifications, or other findings are seen in either breast. There has been no significant interval change. IMPRESSION: BENIGN There is no mammographic evidence of malignancy. A 1 year screening mammogram is recommended. Based on the Tyrer Cuzick model (a risk assessment model) the patient's lifetime risk is 4.9% and her 10 year risk is 0.0%. According to the ACR, ACS, and NCCN guidelines, an annual breast MRI exam along with mammogram is recommended if the patient's lifetime risk is 20% or greater. This exam was interpreted at Station ID: [id number]. NOTE: For mammograms, a report in lay terms will be sent to the patient. Approximately 15% of breast malignancies will not be visualized mammographically. In the management of a palpable breast mass, a negative mammogram must not discourage biopsy of a clinically suspicious lesion. Electronically Signed By: Jerrica santos/joshua:12/19/2021 08:46:28 letter sent: Normal Exam ACR BI-RADS Category 2: Benign Finding(s) 3342F
== END ==
PROVIDERS: PCP Family Medicine; Referring Provider Family Medicine; Visit Provider Family Medicine
DX: Z12.31 Encounter for screening mammogram for malignant neoplasm of breast (principal); Z80.3 Family history of malignant neoplasm of breast
CPT/HCPCS: 77063; 77067

== ENCOUNTER → 2022-01-03 08:03 | Outpatient (CLI) | payer MEDICARE, OTHER, SELFPAY ==
[2020-09-13 13:46] VITALS: BMI 26.8
[2022-01-03 09:19] LABS: Add Manual Diff / Slide Review NO; Basophils Absolute Auto 100 /uL (0-100); Basophils Percent Auto 0.9 % (0-2); Eosinophils Absolute Auto 200 /uL (0-450); Eosinophils Percent Auto 2.6 % (2-4); Hematocrit 37.8 % (36-46); Lymphocytes Absolute Auto 2100 /uL (1100-4500); Lymphocytes Percent Auto 30.8 % (25-40); Mean Corpuscular HGB Conc 34.4 % (30-36); Mean Corpuscular Hemoglobin 30.6 PG (26-34); Mean Corpuscular Volume 88.9 fL (80-100); Monocytes Absolute Auto 700 /uL (0-900); Monocytes Percent Auto 10.4 % (3-14); Neutrophils Absolute Auto 3800 /uL (1500-7000); Neutrophils Percent Auto 55.3 % (50-75); Platelet Count 291 X10^3/uL (150-400); Red Blood Cell Count 4.25 X10^6/uL (4.0-5.2); Red Cell Distribution Width 12.9 % (11.6-14.8)
[2022-01-03 10:59] LABS: Alanine Aminotransferase 37 IU/L (<35); Albumin 4.3 g/dL (3.5-5.0); Albumin Globulin Ratio 1.6 (1.0-2.8); Alkaline Phosphatase 112 U/L (38-126); Aspartate Aminotransferase 30 IU/L (14-36); BUN Creatinine Ratio 33.8 (6-22); Bilirubin Total 0.3 mg/dL (0.2-1.3); Blood Urea Nitrogen 23 mg/dL (7-17); Calcium 9.1 mg/dL (8.4-10.2); Carbon Dioxide 25 mmol/L (22-32); Chloride 104 mmol/L (98-107); Cholesterol 183 mg/dL (140-199); Estimated Glomerular Filt Rate > 60 mL/min (>60); Globulin 2.7 g/dL (1.7-4.1); Glucose 99 mg/dL (80-110); HDL Cholesterol 43 mg/dL (40-60); HEMOLYSIS < 15 (0-50); LDL Cholesterol Calculated 106 mg/dL (<100); Potassium 4.5 mmol/L (3.4-5.1); Sodium 141 mmol/L (137-145); Triglycerides 170 mg/dL (35-150)
[2022-01-03 11:09] LABS: Creatinine Urine Random 123.3 mg/dL; Microalbumin Urine Random 2.1 mg/dL (0-1.6)
[2022-01-03 11:25] LABS: TSH w/ Reflex to FT4 1.37 uIU/mL (0.47-4.68)
== END ==
PROVIDERS: PCP Family Medicine; Referring Provider Family Medicine; Visit Provider Family Medicine
DX: E03.9 Hypothyroidism, unspecified (principal); E78.2 Mixed hyperlipidemia; I10 Essential (primary) hypertension; R80.9 Proteinuria, unspecified
CPT/HCPCS: 36415; 80053; 80061; 82043; 82570; 84443; 85025

== ENCOUNTER → 2022-07-29 13:32 | Outpatient (CLI) | payer MEDICARE, OTHER, SELFPAY ==
[2020-09-13 13:46] VITALS: BMI 26.8
[2022-07-29 13:58] LABS: Add Manual Diff / Slide Review NO; Basophils Absolute Auto 100 /uL (0-100); Basophils Percent Auto 0.5 % (0-2); Eosinophils Absolute Auto 100 /uL (0-450); Eosinophils Percent Auto 1.1 % (2-4); Hematocrit 40.2 % (36-46); Hemoglobin 13.7 g/dL (12.0-16.0); Lymphocytes Absolute Auto 2000 /uL (1100-4500); Lymphocytes Percent Auto 21.3 % (25-40); Mean Corpuscular HGB Conc 34.1 % (30-36); Mean Corpuscular Hemoglobin 30.5 PG (26-34); Mean Corpuscular Volume 89.5 fL (80-100); Monocytes Absolute Auto 900 /uL (0-900); Monocytes Percent Auto 9.5 % (3-14); Neutrophils Absolute Auto 6400 /uL (1500-7000); Neutrophils Percent Auto 67.6 % (50-75); Platelet Count 312 X10^3/uL (150-400); Red Blood Cell Count 4.49 X10^6/uL (4.0-5.2); Red Cell Distribution Width 12.8 % (11.6-14.8); White Blood Cell Count 9.5 X10^3/uL (4.5-11.0)
[2022-07-29 14:16] LABS: Alanine Aminotransferase 23 IU/L (<35); Albumin 4.7 g/dL (3.5-5.0); Albumin Globulin Ratio 1.6 (1.0-2.8); Alkaline Phosphatase 103 U/L (38-126); Aspartate Aminotransferase 24 IU/L (14-36); BUN Creatinine Ratio 23.2 (6-22); Bilirubin Total 0.4 mg/dL (0.2-1.3); Blood Urea Nitrogen 26 mg/dL (7-17); Calcium 9.2 mg/dL (8.4-10.2); Carbon Dioxide 30 mmol/L (22-32); Chloride 104 mmol/L (98-107); Estimated Glomerular Filt Rate 50 mL/min (>60); Globulin 2.9 g/dL (1.7-4.1); Glucose 98 mg/dL (80-110); HEMOLYSIS < 15 (0-50); Lipase 90 U/L (23-300); Potassium 4.1 mmol/L (3.4-5.1); Sodium 139 mmol/L (137-145); Total Protein 7.6 g/dL (6.3-8.2)
== END ==
PROVIDERS: PCP Family Medicine; Referring Provider Family Medicine; Visit Provider Family Medicine
DX: R10.13 Epigastric pain (principal)
CPT/HCPCS: 36415; 80053; 83690; 85025

== ENCOUNTER → 2022-09-30 13:39 | Outpatient (CLI) | payer MEDICARE, OTHER, SELFPAY ==
[2020-09-13 13:46] VITALS: BMI 26.8
[2022-09-30 14:40] LABS: Alanine Aminotransferase 21 IU/L (<35); Albumin 4.3 g/dL (3.5-5.0); Albumin Globulin Ratio 1.5 (1.0-2.8); Alkaline Phosphatase 101 U/L (38-126); Aspartate Aminotransferase 22 IU/L (14-36); BUN Creatinine Ratio 35.3 (6-22); Bilirubin Total 0.3 mg/dL (0.2-1.3); Blood Urea Nitrogen 30 mg/dL (7-17); Calcium 9.2 mg/dL (8.4-10.2); Carbon Dioxide 24 mmol/L (22-32); Chloride 104 mmol/L (98-107); Estimated Glomerular Filt Rate > 60 mL/min (>60); Globulin 2.8 g/dL (1.7-4.1); Glucose 112 mg/dL (80-110); HEMOLYSIS 20 (0-50); Potassium 4.1 mmol/L (3.4-5.1); Sodium 136 mmol/L (137-145); Total Protein 7.1 g/dL (6.3-8.2)
== END ==
PROVIDERS: PCP Family Medicine; Referring Provider Family Medicine; Visit Provider Family Medicine
DX: R80.9 Proteinuria, unspecified (principal); R94.4 Abnormal results of kidney function studies
CPT/HCPCS: 36415; 80053

== ENCOUNTER 2022-10-01 09:46 | Emergency (ER) | payer MEDICARE, OTHER, SELFPAY ==
[2020-09-13 13:46] VITALS: BMI 26.8
[2022-10-01] VITALS (11 sets, daily range): BP systolic 138–171; BP diastolic 74–96; PULSE 96–119; RESP 11–23; TEMP 36.7; O2SAT 96–98; BMI 26.6
--- NOTE | 2022-10-01 09:57 | DI.RAD.S_ITS ---
PROCEDURE: XR CHEST 1V INDICATIONS: chest pain TECHNIQUE: One view of the chest was acquired. COMPARISON: None. FINDINGS: Surgical changes and devices: None. Lungs and pleura: Lungs are clear. No pleural effusions or pneumothorax. Mediastinum: Cardiac silhouette is within normal limits for size. Bones and chest wall: No suspicious bony lesions. Overlying soft tissues appear unremarkable. IMPRESSION: No acute cardiopulmonary abnormality. Dictated by: Herve Hatfield M.D. on 10/01/2022 at 12:24 Approved by: Herve Hatfield M.D. on 10/01/2022 at 12:27
[2022-10-01 10:10] LABS: Add Manual Diff / Slide Review NO; Basophils Absolute Auto 0 /uL (0-100); Basophils Percent Auto 0.5 % (0-2); Eosinophils Absolute Auto 100 /uL (0-450); Eosinophils Percent Auto 0.6 % (2-4); Hematocrit 42.6 % (36-46); Hemoglobin 14.5 g/dL (12.0-16.0); Lymphocytes Absolute Auto 1800 /uL (1100-4500); Lymphocytes Percent Auto 19.7 % (25-40); Mean Corpuscular Hemoglobin 30.5 PG (26-34); Mean Corpuscular Volume 89.9 fL (80-100); Monocytes Absolute Auto 800 /uL (0-900); Monocytes Percent Auto 8.4 % (3-14); Neutrophils Absolute Auto 6500 /uL (1500-7000); Neutrophils Percent Auto 70.8 % (50-75); Platelet Count 351 X10^3/uL (150-400); Red Blood Cell Count 4.74 X10^6/uL (4.0-5.2); White Blood Cell Count 9.2 X10^3/uL (4.5-11.0)
[2022-10-01 10:20] LABS: Alanine Aminotransferase 23 IU/L (<35); Albumin 4.9 g/dL (3.5-5.0); Albumin Globulin Ratio 1.6 (1.0-2.8); Alkaline Phosphatase 98 U/L (38-126); Aspartate Aminotransferase 29 IU/L (14-36); BUN Creatinine Ratio 31.8 (6-22); Bilirubin Total 0.6 mg/dL (0.2-1.3); Blood Urea Nitrogen 21 mg/dL (7-17); Calcium 9.5 mg/dL (8.4-10.2); Carbon Dioxide 23 mmol/L (22-32); Chloride 105 mmol/L (98-107); Creatine Kinase 79 U/L (30-135); Estimated Glomerular Filt Rate > 60 mL/min (>60); Glucose 118 mg/dL (80-110); HEMOLYSIS 16 (0-50); Lipase 98 U/L (23-300); Magnesium 1.8 mg/dL (1.6-2.3); Potassium 4.4 mmol/L (3.4-5.1); Prothrombin Time 11.5 SECONDS (10.1-12.7); Sodium 139 mmol/L (137-145); Total Protein 7.9 g/dL (6.3-8.2)
[2022-10-01 10:23] LABS: PTT Partial Thromboplastin Tim 29 SECONDS (26-36)
[2022-10-01 10:31] LABS: Troponin I < 0.012 ng/mL (0.01-0.034)
--- NOTE | 2022-10-01 11:32 | ED_ITS ---
HPI - Arrhythmia/Palpitations General Chief Complaint: Arrhythmia/Palpitations Stated Complaint: Sent from primary care, in AFIB Time Seen by Provider: 10/01/22 10:56 Source: patient Mode of arrival: Ambulatory Limitations: no limitations History of Present Illness HPI narrative: This is a 76-year-old female with history of hypertension, dyslipidemia, hypothyroidism who presents with complaint of palpitations that started FridaySeptember 27. Patient states it started in the evening has been persistent since then. She states she woke up with a bit of a cough. She states no syncope or lightheadedness. It has been persistent. No chest pain or shortness of breath. No new swelling in extremities, no nausea or vomiting no dysuria urgency or frequency, no issues with bowel movements. Patient states no dysuria urgency or frequency. She does note she had little bit abdominal cramping recently she is had a little bit of nose running. She states she also had some sweating at nighttime. Patient states she takes at least 3 medications for blood pressure medication for hypothyroidism, dyslipidemia, no known cardiac issues in the past or cardiac arrhythmias. She is significant chest pain about 15 years ago or more and had a cardiac catheterization at that time which was negative and told that was just digestive issues. Patient has prior history of tubal ligation, cataract surgery and prolapsed uterus. Allergies to sulfa, penicillin and HCTZ. No tobacco, 1-2 alcoholic drinks daily, no illicit. She does take a CBD full spectrum for sleep at night. She has not seen Cardiology recently. Her primary care is Dr. Leahy. Patient presented at the walk-in clinic was referred to Dr. Elise who sent her to the ED. Related Data Home Medications Medication Instructions Recorded Confirmed multivitamin 1 tab PO DAILY 11/26/19 10/01/22 calcium glycerophosphate 65 mg 130 mg PO BID 10/09/20 10/01/22 tablet (Prelief) Previous Rx's Medication Instructions Recorded epinephrine 0.3 mg/0.3 mL 0.3 mg (0.3 mL) IM ONCE 11/03/20 injection, auto-injector (EpiPen Anaphylaxis #2 ea 2-Yoseph) temazepam 15 mg capsule 15 mg PO BEDTIME PRN sleep #30 caps 10/23/21 amlodipine 5 mg tablet 7.5 mg PO DAILY #135 tabs 02/12/22 levothyroxine 200 mcg tablet 200 mcg PO QDAY #90 tabs 02/12/22 metoprolol succinate 200 mg 200 mg PO QDAY #90 tabs 05/17/22 tablet,extended release 24 hr (Toprol XL) atorvastatin 40 mg tablet See Rx Instructions .Route 07/09/22 .COMPLEX #90 tabs losartan 100 mg tablet See Rx Instructions .Route 08/06/22 .COMPLEX #90 tabs zolpidem 5 mg tablet 2.5 mg PO BEDTIME PRN insomnia #20 08/06/22 tabs dabigatran etexilate 150 mg 150 mg PO BID #60 caps 10/01/22 capsule (Pradaxa) metoprolol succinate 50 mg capsule 50 mg PO DAILY #30 ea 10/01/22 sprinkle, ext. release 24 hr Allergies Allergy/AdvReac Type Severity Reaction Status Date / Time Sulfa (Sulfonamide Allergy Severe THROAT Verified 10/01/22 09:57 Antibiotics) SWELLING Penicillins Allergy Intermediate HIVES Verified 10/01/22 09:57 adhesive Allergy Mild Rash Verified 10/01/22 09:57 hydrochlorothiazide AdvReac Mild RASH Verified 10/01/22 09:57 pravastatin AdvReac Mild MUSCLE PAIN Verified 10/01/22 09:57 simvastatin AdvReac Mild VOMITING Verified 10/01/22 09:57 Review of Systems Review of Systems ROS Unobtainable: All systems reviewed & are unremarkable except as noted in HPI and below Patient History Medical History Fibromuscular dysplasia Frequent urination at night HLD (hyperlipidemia) Hypertension Hypothyroidism (acquired) Microalbuminuria Surgical History H/O pelvic surgery History of colonoscopy (10/19/19) Hx of bilateral cataract extraction Status post tubal ligation Social History household members: spouse Smoking Status: Never smoker alcohol intake: current Smoking Status: Never smoker alcohol intake frequency: 0-2 drinks per day Substance Use Type: does not use Exam Narrative Exam Narrative: GENERAL: Alert and oriented x three, well-nourished male in mild distress HEENT: Head normocephalic, atraumatic, EOMI, pupils reactive, face symmetric, moist mucous membranes NECK: Supple, full range of motion CARDIOVASCULAR: Irregularly irregular rate and rhythm without murmurs, rubs or gallops. No JVD. No swelling lower extremities RESPIRATORY: Breath sounds equal bilaterally, no wheezes rales or rhonchi. ABDOMEN: Soft, nontender. Normoactive bowel sounds all 4 quadrants. No guarding or rebound, rigidity, no mass : No CVA tenderness EXTREMITIES: Normal range of motion, no clubbing or edema. Neurovascularly intact NEUROLOGICAL: Cranial nerves II through XII grossly intact. Moving all extremities SKIN: Warm, dry, no petechiae, no rashes or lesions. Initial Vital Signs Initial Vital Signs: Vital Signs Temperature 98.1 F 10/01/22 09:47 Pulse Rate 96 H 10/01/22 09:47 Respiratory Rate 16 10/01/22 09:47 Blood Pressure 140/96 H 10/01/22 09:47 Pulse Oximetry 98 10/01/22 09:47 Oxygen Delivery Method Room Air 10/01/22 09:47 Scores CHADS-VASc Congestive heart failure: no Hypertension: yes Age 75 years or older: yes Diabetes mellitus: no Stroke, TIA, or TE: no Vascular disease: no Age 65 to 74 years: no Sex category (female): Female CHADS-VASc Score: 4 Course Orders Ordered: Discontinued Medications Aspirin (Aspirin 81 Mg Chew Tab) 324 mg PO NOW ONE Stop: 10/01/22 09:58 Last Admin: 10/01/22 14:01 Dose: Not Given Documented By: MICHAEL Dabigatran (Dabigatran 75 Mg Capsule) 150 mg PO NOW ONE Stop: 10/01/22 14:18 Last Admin: 10/01/22 14:27 Dose: 150 mg Documented By: ANANDA Sodium Chloride (Normal Saline 0.9%) 1,000 mls @ 1,000 mls/hr IV BOLUS ONE Stop: 10/01/22 14:33 Last Infusion: 10/01/22 14:28 Dose: 0 mls/hr Documented By: Admin: 10/01/22 13:45 Dose: 1,000 mls/hr Documented By: MICHAEL Metoprolol Succinate (Metoprolol Er 25 Mg Tablet) 25 mg PO NOW ONE Stop: 10/01/22 14:04 Last Admin: 10/01/22 14:12 Dose: 25 mg Documented By: MICHAEL Metoprolol Tartrate (Metoprolol Tartrate 5 Mg/5 Ml Inj) 5 mg IV NOW ONE Stop: 10/01/22 12:59 Last Admin: 10/01/22 13:02 Dose: 5 mg Documented By: MICHAEL Vital Signs Vital signs: Vital Signs - 8 hr 10/01/22 12:30 10/01/22 14:12 10/01/22 13:30 Pulse Rate 108 H 101 H 101 H Respiratory Rate 19 11 L Blood Pressure 138/85 171/81 H 168/80 H Pulse Oximetry 97 97 Oxygen Delivery Method Room Air 10/01/22 14:00 Pulse Rate 97 H Respiratory Rate 23 Blood Pressure 171/81 H Pulse Oximetry 97 Oxygen Delivery Method Room Air MDM - Arrhythmia/Palpitations Lab Data 10/01/22 10:00 10/01/22 10:00 Labs: Lab Results 10/01/22 10/01/22 10/01/22 Range/Units 10:00 10:00 10:00 WBC 9.2 (4.5-11.0) X10^3/uL RBC 4.74 (4.0-5.2) X10^6/uL Hgb 14.5 (12.0-16.0) g/dL Hct 42.6 (36-46) % MCV 89.9 (80-100) fL MCH 30.5 (26-34) PG MCHC 34.0 (30-36) % RDW 13.0 (11.6-14.8) % Plt Count 351 (150-400) X10^3/uL Neut % (Auto) 70.8 (50-75) % Lymph % (Auto) 19.7 L (25-40) % [place] % (Auto) 8.4 (3-14) % Eos % (Auto) 0.6 L (2-4) % Baso % (Auto) 0.5 (0-2) % Neut # (Auto) 6500 (2004-2195) /uL Lymph # (Auto) 1800 (2320-6549) /uL [place] # (Auto) 800 (0-900) /uL Eos # (Auto) 100 (0-450) /uL Baso # (Auto) 0 (0-100) /uL PT 11.5 (10.1-12.7) SECONDS INR 1.0 (0.9-1.3) APTT 29 (26-36) SECONDS Sodium 139 (137-145) mmol/L Potassium 4.4 (3.4-5.1) mmol/L Chloride 105 (98-107) mmol/L Carbon Dioxide 23 (22-32) mmol/L BUN 21 H (7-17) mg/dL Creatinine 0.66 (0.52-1.04) mg/dL Estimated GFR > 60 (>60) mL/min BUN/Creatinine Ratio 31.8 H (6-22) Glucose 118 H (80-110) mg/dL Calcium 9.5 (8.4-10.2) mg/dL Magnesium 1.8 (1.6-2.3) mg/dL Total Bilirubin 0.6 (0.2-1.3) mg/dL AST 29 (14-36) IU/L ALT 23 (<35) IU/L Alkaline Phosphatase 98 (38-126) U/L Total Creatine Kinase 79 (30-135) U/L Troponin I < 0.012 (0.01-0.034) ng/mL Total Protein 7.9 (6.3-8.2) g/dL Albumin 4.9 (3.5-5.0) g/dL Globulin 3.0 (1.7-4.1) g/dL Albumin/Globulin Ratio 1.6 (1.0-2.8) Lipase 98 (23-300) U/L TSH (0.47-4.68) uIU/mL Free T4 (0.78-2.19) ng/dL Free T3 (2.77-5.27) pg/mL 10/01/22 10/01/22 Range/Units 10:00 10:00 WBC (4.5-11.0) X10^3/uL RBC (4.0-5.2) X10^6/uL Hgb (12.0-16.0) g/dL Hct (36-46) % MCV (80-100) fL MCH (26-34) PG MCHC (30-36) % RDW (11.6-14.8) % Plt Count (150-400) X10^3/uL Neut % (Auto) (50-75) % Lymph % (Auto) (25-40) % [place] % (Auto) (3-14) % Eos % (Auto) (2-4) % Baso % (Auto) (0-2) % Neut # (Auto) (2342-4224) /uL Lymph # (Auto) (5259-9613) /uL [place] # (Auto) (0-900) /uL Eos # (Auto) (0-450) /uL Baso # (Auto) (0-100) /uL PT (10.1-12.7) SECONDS INR (0.9-1.3) APTT (26-36) SECONDS Sodium (137-145) mmol/L Potassium (3.4-5.1) mmol/L Chloride (98-107) mmol/L Carbon Dioxide (22-32) mmol/L BUN (7-17) mg/dL Creatinine (0.52-1.04) mg/dL Estimated GFR (>60) mL/min BUN/Creatinine Ratio (6-22) Glucose (80-110) mg/dL Calcium (8.4-10.2) mg/dL Magnesium (1.6-2.3) mg/dL Total Bilirubin (0.2-1.3) mg/dL AST (14-36) IU/L ALT (<35) IU/L Alkaline Phosphatase (38-126) U/L Total Creatine Kinase (30-135) U/L Troponin I (0.01-0.034) ng/mL Total Protein (6.3-8.2) g/dL Albumin (3.5-5.0) g/dL Globulin (1.7-4.1) g/dL Albumin/Globulin Ratio (1.0-2.8) Lipase (23-300) U/L TSH 1.05 (0.47-4.68) uIU/mL Free T4 1.37 (0.78-2.19) ng/dL Free T3 4.05 (2.77-5.27) pg/mL Imaging Data Chest x-ray: Radiologist's Impresson: n (More??) Close Chest X-Ray (Signed) Herve Hatfield - 10/01/22 Mammogram Screening (Signed) Jerrica Ferro - 12/18/21 Mammogram Screening (Signed) Roderick Cummins - 12/07/20 Knee MRI (Signed) Herve Vasquez - 05/12/20 Telemetry Strips 10/19/19 Mammogram Screening (Signed) Herve Vasquez - 09/23/19 Mammogram Screening (Signed) Ray Fajardo - 07/06/18 Launch?[address] [address] XRay Report Signed Patient: Edilia Wesley MR#: [id number] : 1945 Acct:[id number] Age/Sex: 76 / F Date of Service: 10/01/22 Loc: ED Accession Number: [id number] ?? Procedure: XR chest 1V Ordering Provider: Yesi Montemayor D.O. PROCEDURE:? XR CHEST 1V ? INDICATIONS:? chest pain ? TECHNIQUE:? One view of the chest was acquired.? ? COMPARISON:? None. ? FINDINGS:? ? Surgical changes and devices:? None.? ? Lungs and pleura:? Lungs are clear.? No pleural effusions or pneumothorax.? ? Mediastinum:? Cardiac silhouette is within normal limits for size. ? Bones and chest wall:? No suspicious bony lesions.? Overlying soft tissues appear unremarkable.? ? IMPRESSION:? No acute cardiopulmonary abnormality. ? ? Dictated by: Herve Hatfield M.D. on 10/01/2022 at 12:24 ? ? Approved by: Herve Hatfield M.D. on 10/01/2022 at 12:27?? ECG Data Attestation: I personally reviewed and interpreted this ECG as follows: Prior ECG tracings: not available for review Interpretation: Atrial fibrillation with rapid ventricular response rate of 106 QRS 82 and QTC 443. No acute ST changes appreciated. Nonspecific change. No prior available for comparison. MDM Narrative Medical decision making narrative: 68-year-old female who presents with complaint of irregular heartbeat since last Friday it has been 4-5 days total that she is had persistent symptoms. Patient's heart rate has been 1 6-110 occasionally pops up to 130 but is fairly close to rate control with around 100. Patient's chest x-ray is negative, CBC, coags, CMP show no acute changes glucose is 118, troponin is negative. TSH is 1.05, patient did ask for free T4 in 3 to be sent. Patient did note that remotely she had some palpitations and followed with her plug making operator who got her thyroid in better alignment and they resolved she describes this as being quite awhile ago. She has not had any other episodes. Patient is overall well-appearing her chads vascular score is 4 today. Discussed with patient she is on metoprolol, amlodipine and losartan. Patient was given a dose of IV metoprolol. Discussed with patient alcohol cessation she only drinks 1-2 nightly but this may be helpful, we will increase her metoprolol did discussed stronger anticoagulants her chads Vasc score is 4. Patient referred to Cardiology but asked for close follow up with Cardiology or primary care for recheck, outpatient echo and further workup as needed. SPoke with patient's Dr. Leahy, we will help facilitate follow-up and have already put in a Cardiology referral. Agrees with plan to increase metoprolol, start patient on Pradaxa similar medication. She was felt appropriate for discharge home today. Patient received a dose of Pradaxa as well as oral metoprolol and has been 90s to 100 range. She feels comfortable returning home. Discussed return precautions. Discharge Plan Departure Patient Disposition: Home Clinical Impression: Atrial fibrillation with rapid ventricular response Instructions: DI for Atrial Fibrillation Activity Restrictions/Additional Instructions: Follow up with your physician and/or cardiology in the next week. Call for an appointment. I spoke with Dr. Leahy and they will help facilitate follow-up. I would increase your metoprolol, a prescription was sought for an additional 50 mg of metoprolol extended release to be taken with your regular daily metoprolol (250mg total) Prescription for Pradaxa was sent, take 1 tablet twice daily. You received her 1st dose here today. Prescription sent to [facility] in [place]. Please return for new chest pain, shortness of breath if your heart rate continues to be elevated, increasing swelling, other new or concerning changes Prescriptions: New metoprolol succinate 50 mg capsule,sprinkle,ER 24hr 50 mg PO DAILY Qty: 30 0RF dabigatran etexilate [Pradaxa] 150 mg capsule 150 mg PO BID Qty: 60 0RF No Action epinephrine [EpiPen 2-Yoseph] 0.3 mg/0.3 mL auto-injector 0.3 mg IM ONCE Qty: 2 0RF Rx Instructions: as a single dose temazepam 15 mg capsule 15 mg PO BEDTIME PRN (Reason: sleep) Qty: 30 1RF levothyroxine 200 mcg tablet 200 mcg PO QDAY Qty: 90 3RF amlodipine 5 mg tablet 7.5 mg PO DAILY Qty: 135 3RF metoprolol succinate [Toprol XL] 200 mg tablet extended release 24 hr 200 mg PO QDAY Qty: 90 3RF atorvastatin 40 mg tablet See Rx Instructions .ROUTE .COMPLEX Qty: 90 3RF Dose Instruction: TAKE 1 TABLET BY MOUTH EVERY DAY Rx Instructions: TAKE 1 TABLET BY MOUTH EVERY DAY losartan 100 mg tablet See Rx Instructions .ROUTE .COMPLEX Qty: 90 0RF Dose Instruction: TAKE 1 TABLET BY MOUTH DAILY Rx Instructions: TAKE 1 TABLET BY MOUTH DAILY zolpidem 5 mg tablet 2.5 mg PO BEDTIME PRN (Reason: insomnia) Qty: 20 2RF multivitamin Tablet 1 tab PO DAILY Prelief 65 mg tablet 130 mg PO BID Referrals: Jessee Leahy MD [Primary Care Provider] - Vijaya Barger MD [Physician] - Stand Alone Forms: Patient Portal/API
[2022-10-01 11:36] LABS: TSH w/ Reflex to FT4 1.05 uIU/mL (0.47-4.68)
[2022-10-01] MEDS: METOPROLOL TARTRATE 5 MG/5 ML INJ IV (13:02)
[2022-10-01 13:28] LABS: Free T3, Triiodothyronine Free 4.05 pg/mL (2.77-5.27); Free T4, Direct Thyroxine 1.37 ng/dL (0.78-2.19)
[2022-10-01] MEDS: SODIUM CHLORIDE 0.9% 1,000 ML 1000 ML IV (13:45)
[2022-10-01] MEDS: METOPROLOL ER 25 MG TABLET PO (14:12)
[2022-10-01] MEDS: DABIGATRAN 75 MG CAPSULE 150 MG PO (14:27)
== END 2022-10-01 14:46 | disposition home or self-care (01) ==
PROVIDERS: Emergency Provider Emergency Medicine; PCP Family Medicine
DX: I48.91 Unspecified atrial fibrillation (principal)
CPT/HCPCS: 36415; 71045; 80053; 82550; 83690; 83735; 84439; 84443; 84481; 84484; 85025; 85610; 85730; 93005; 93010; 96374; 99284

== ENCOUNTER → 2022-10-16 13:34 | Outpatient (CLI) | payer MEDICARE, OTHER, SELFPAY ==
[2020-09-13 13:46] VITALS: BMI 26.8
[2022-10-17 08:39] LABS: Interpretation Negative (Negative)
== END ==
PROVIDERS: PCP Family Medicine; Referring Provider Surgery; Visit Provider Surgery
DX: R10.9 Unspecified abdominal pain (principal)
CPT/HCPCS: 83013; 99213

== ENCOUNTER → 2022-10-17 10:22 | Outpatient (CLI) | payer MEDICARE, OTHER, SELFPAY ==
[2020-09-13 13:46] VITALS: BMI 26.8
--- NOTE | 2022-10-17 10:24 | DI.ECHO.S_ITS ---
[facility]---------+ [facility] +---------+ : : [address] : : : : [id number] : : : : Phone: [phone]+ Echocardiogram Report + + :Name: IBRAHIMA DE LA ROSA Study Date: 10/17/2022 Height: 64 in : :[facility] ReadingLocation: Weight: 155 lb : : Gender: Female BSA: 1.8 m2 : :: 1945 Age: 76 yrs BP: 148/67 mmHg: :Reason For Study: New Atrial Fibrillation : :Ordering Physician: CHUNG, : :TYRA Performed By: Jade Alcantar : :Referring: TYRA WILKES : + + Interpretation Summary The left ventricle is normal in size. The ejection fraction is estimated to be 55-60%. There are no focal wall motion abnormalities. Diastolic parameters suggest probable normal left ventricular diastolic function and normal filling pressures. The right ventricle is normal in size and function. The right ventricular systolic pressure is estimated to be at least 18 mmHg based on an estimated right atrial pressure of 8 mm Hg. The left atrium is mildly dilated. Right atrial size is normal. The aortic valve is slightly calcified. The aortic valve opens well. There is no other significant valvular heart disease. The aortic root is normal size. Procedure: A two-dimensional transthoracic echocardiogram with color flow and Doppler was performed. The study quality was technically adequate. There is no prior echocardiogram noted for this patient. The patient was in normal sinus rhythm during the exam. Left Ventricle: The left ventricle is normal in size. There is normal left ventricular wall thickness. The ejection fraction is estimated to be 55-60%. There are no focal wall motion abnormalities. Diastolic parameters suggest probable normal left ventricular diastolic function and normal filling pressures. Right Ventricle: The right ventricle is normal in size and function. Atria: The left atrium is mildly dilated. Right atrial size is normal. There is no Doppler evidence for an interatrial shunt. Mitral Valve: The mitral valve is normal. There is no mitral valve stenosis. There is mild mitral regurgitation. Aortic Valve: The aortic valve is trileaflet. The aortic valve opens well. The aortic valve is slightly calcified. There is no aortic valve stenosis. There is trace aortic regurgitation. Tricuspid Valve: The tricuspid valve leaflets are thin and pliable. There is no tricuspid stenosis. There is trace tricuspid regurgitation. The right ventricular systolic pressure is estimated to be at least 18 mmHg based on an estimated right atrial pressure of 8 mm Hg. Pulmonic Valve: The pulmonic valve leaflets are thin and pliable; valve motion is normal. There is no pulmonic valvular stenosis. There is trace pulmonic regurgitation. There is no other significant valvular heart disease. Great Vessels: The aortic root is normal size. The ascending aorta is normal in size. The pulmonary artery is normal size. The IVC is dilated (diameter is greater than 2.1 cm) yet it collapses greater than 50% with a sniff. This suggests a right atrial pressure of 8 mm Hg. Pericardium/ Pleura There is no pericardial effusion. There is no pleural effusion. MMode/2D Measurements & Calculations LVIDd: 4.7 cm LVOT diam: 1.9 cm LVIDs: 3.1 cm Ao root diam: 2.9 cm FS: 34.0 % asc Aorta Diam: 3.0 cm IVSd: 1.0 cm LVPWd: 0.90 cm LV campos. diameter/BSA (cm/m^2): 2.7 LV sys. diameter/BSA (cm/m^2): 1.8 LA A2 area: 22.2 cm2 RA long axis: 4.8 cm LA A4 area: 15.0 cm2 RA area: 14.8 cm2 LA length (vol): 5.5 cm RA vol: 38.7 ml LA vol: 51.6 ml RA : 22.1 ml/m2 LA vol index: 29.4 ml/m2 RVD1 (basal): 3.8 cm LVLs ap4: 6.0 cm LVLd ap2: 7.1 cm TAPSE_phl: 2.7 cm LVLs ap2: 6.0 cm Doppler Measurements & Calculations Ao V2 max: 146.3 cm/sec LVOT Max Duglas: 98.0 cm/sec Ao V2 mean: 96.7 cm/sec LV V1 max P.8 mmHg Ao max P.0 mmHg LV V1 VTI: 23.6 cm Ao mean P.0 mmHg ELIANA(I,D): 1.8 cm2 Ao V2 VTI: 36.7 cm ELIANA(V,D): 1.9 cm2 sev ratio: 0.64 ELIANA indexed to BSA (cm^2/m^2): 1.0 MV E max duglas: 87.7 cm/sec TR max duglas: 160.6 cm/sec MV A max duglas: 87.4 cm/sec TR max P.3 mmHg MV E/A: 1.0 PA V2 max: 79.9 cm/sec Med Peak E' Duglas: 5.6 cm/sec PA V2 mean: 54.7 cm/sec E/E' med: 15.7 PA mean P.0 mmHg Lat Peak E' Duglas: 7.5 cm/sec PA pr(Accel): 18.2 mmHg E/E' lat: 11.7 E/e' average: 13.7 MV dec time: 0.21 sec SV(LVOT): 66.8 ml AV VR_phl: 0.67 ELIANA(VTI)/BSA_phl: 1.0 Reading Physician:03:00 PM
== END ==
PROVIDERS: PCP Family Medicine; Referring Provider Family Medicine; Visit Provider Family Medicine
DX: I34.0 Nonrheumatic mitral (valve) insufficiency (principal); I48.91 Unspecified atrial fibrillation; I10 Essential (primary) hypertension; R10.13 Epigastric pain
CPT/HCPCS: 93306

== ENCOUNTER 2022-10-24 08:00 | Day surgery (SDC) | payer MEDICARE, OTHER, SELFPAY ==
[2020-09-13 13:46] VITALS: BMI 26.8
--- NOTE | 2022-10-24 | PATH_ITS ---
[facility] Accession Number: [id number] No. of containers..02 Tissue . 01 Material submitted: . PART A: stomach - ANTRUM PART B: stomach - BODY OF STOMACH . 01 Diagnosis: A. Antrum, Biopsy: Gastric mucosa with moderate chronic inflammation and focal intestinal metaplasia. No Helicobacter pylori organisms identified on immunohistochemical evaluation. No dysplasia or malignancy identified. . B. Body of Stomach, Biopsy: Gastric mucosa with mild chronic inflammation. No Helicobacter pylori organisms identified on immunohistochemical evaluation. No intestinal metaplasia, dysplasia, or malignancy identified. [facility] 10/31/2022 1616 Local . 01 Electronically signed: . Ewa Mansfield MD, Pathologist NPI- [id number] . 01 Gross description: . Part A: ANTRUM: Received in formalin is 2 fragment(s) of narayan, soft tissue measuring 0.3 x 0.2 x 0.2 cm to 0.3 x 0.2 x 0.1 cm submitted entirely in 1 cassette(s) Part B: BODY OF STOMACH: Received in formalin is multiple fragment(s) of narayan, soft tissue measuring 0.7 x 0.3 x 0.1 cm in aggregate submitted entirely in 1 cassette(s) /AA 10/25/2022 0532 Local . 01 Microscopic: . A. An immunohistochemical stain was performed to evaluate for Helicobacter organisms and is negative. The control stain showed appropriate reactivity. . B. An immunohistochemical stain was performed to evaluate for Helicobacter organisms and is negative. The control stain showed appropriate reactivity. . * This test was developed and its performance characteristics determined by [employer]. It has not been cleared or approved by the U.S. Food and Drug Administration. The FDA has determined that such clearance or approval is not necessary. This test is used for clinical purposes. It should not be regarded as investigational or for research. . 01 Pathologist provided ICD-10: K29.70 . 01 CPT . 088771, 159450, G61106 Specimen Comment: A courtesy copy of this report has been sent to [phone] Performed at: 01 [facility] [address] [place] [address], [place], [place] [id number] MD Roderick Sarmiento MD Phone: [phone]
[2022-10-24 08:21] VITALS: BMI 26.2
[2022-10-24 08:28] VITALS: BP 158/64; PULSE 62; RESP 16; TEMP 35.7; O2SAT 96
[2022-10-24] MEDS: LACTATED RINGERS 1,000 ML 120 ML IV (08:32)
--- NOTE | 2022-10-24 09:17 | PM.PREOP ---
Pre-operative Note COVID-19 COVID-19 status: Not tested Interval Note History & Physical reviewed/Exam performed by Physician: Yes Changes to H&P: No ASA Class (for procedural sedation): II
--- NOTE | 2022-10-24 09:42 | PM.OP.EGD ---
Operative Date/Time/Diagnoses Date of procedure: 10/24/22 Time of procedure: 09:43 Pre-op diagnosis: Epigastric pain Post-op diagnosis: same Procedure & Clinicians Study performed: Esophagogastroduodenoscopy Same procedure as scheduled: Yes Surgeon: Ricardo Garcia Procedure Notes Procedure in detail: Surgeon: Ricardo Garcia MD Anesthesia: Junaid Easley CRNA A timeout was performed. A bite blocked was placed. The patient was positioned in the left lateral decubitus position. Anesthesia was administered. The endoscope was inserted through the bite block and passed through the esophagus and stomach and into the duodenum. The duodenal mucosa appeared normal. The scope was withdrawn into the duodenal bulb and no abnormalities were seen. The scope was withdrawn into the stomach. There were flecks of old blood in the stomach. There was a small shallow ulcer in the proximal body of the stomach. There was some patchy gastritis in the mid portion of the stomach. Random biopsies were taken from the antrum and the mid portion of the gastric body. The scope was retroflexed and no obvious hiatal hernia was seen. The scope was withdrawn into the esophagus and no abnormalities were seen. The remainder of the esophagus was normal. The scope was withdrawn. The patient was awakened and brought to recovery. Sedation time: 8 minutes Findings: Gastritis in the body of the stomach and flecks of old blood Post-procedure Disposition: PACU
[2022-10-24 09:45] VITALS: BP 144/102; PULSE 74; RESP 30; TEMP 36.1; O2SAT 93
[2022-10-24 09:49] VITALS: BP 130/60; PULSE 67; RESP 15; O2SAT 94
[2022-10-24 09:54] VITALS: BP 125/76; PULSE 72; RESP 14; O2SAT 95
[2022-10-24 09:59] VITALS: BP 125/76; PULSE 66; RESP 15; O2SAT 95
[2022-10-24 10:02] VITALS: BP 135/69; PULSE 65; RESP 17; O2SAT 94
== END 2022-10-24 10:21 | disposition home or self-care (01) ==
PROVIDERS: PCP Family Medicine; Referring Provider Surgery; Visit Provider Surgery
PROC: 0DJ08ZZ Inspection of Upper Intestinal Tract, Via Natural or Artificial Opening Endoscopic (ICD-10-PCS; CPT 43235; principal; 2022-10-24 09:00)
DX: R10.13 Epigastric pain (principal); K29.50 Unspecified chronic gastritis without bleeding
CPT/HCPCS: 43239

== ENCOUNTER → 2022-12-09 08:09 | Outpatient (CLI) | payer MEDICARE, OTHER, SELFPAY ==
[2020-09-13 13:46] VITALS: BMI 26.8
[2022-12-09 09:24] LABS: Cholesterol 182 mg/dL (140-199); HDL Cholesterol 39 mg/dL (40-60); LDL Cholesterol Calculated 105 mg/dL (<100); Triglycerides 190 mg/dL (35-150)
== END ==
PROVIDERS: PCP Family Medicine; Referring Provider Internal Medicine Cardiovascular Disease; Visit Provider Internal Medicine Cardiovascular Disease
DX: E78.5 Hyperlipidemia, unspecified (principal)
CPT/HCPCS: 36415; 80061

== ENCOUNTER → 2023-01-10 07:38 | Outpatient (CLI) | payer MEDICARE, OTHER, SELFPAY ==
[2020-09-13 13:46] VITALS: BMI 26.8
[2023-01-10 08:37] LABS: Hematocrit 37.5 % (36-46); Hemoglobin 12.8 g/dL (12.0-16.0); Mean Corpuscular Hemoglobin 30.3 PG (26-34); Mean Corpuscular Volume 89.1 fL (80-100); Platelet Count 329 X10^3/uL (150-400); Red Cell Distribution Width 12.8 % (11.6-14.8); White Blood Cell Count 7.7 X10^3/uL (4.5-11.0)
[2023-01-10 08:42] LABS: HEMOLYSIS < 15 (0-50); Sodium 138 mmol/L (137-145)
[2023-01-10 08:44] LABS: BUN Creatinine Ratio 32.3 (6-22); Blood Urea Nitrogen 21 mg/dL (7-17); Calcium 9.5 mg/dL (8.4-10.2); Carbon Dioxide 26 mmol/L (22-32); Chloride 106 mmol/L (98-107); Estimated Glomerular Filt Rate > 60 mL/min (>60); Glucose 114 mg/dL (80-110)
== END ==
PROVIDERS: PCP Family Medicine; Referring Provider Internal Medicine Cardiovascular Disease; Visit Provider Internal Medicine Cardiovascular Disease
DX: R94.39 Abnormal result of other cardiovascular function study (principal)
CPT/HCPCS: 36415; 80048; 85027

== ENCOUNTER → 2023-01-27 07:54 | Outpatient (CLI) | payer MEDICARE, OTHER, SELFPAY ==
[2020-09-13 13:46] VITALS: BMI 26.8
[2023-01-27 09:03] LABS: Add Manual Diff / Slide Review NO; Basophils Absolute Auto 100 /uL (0-100); Basophils Percent Auto 0.8 % (0-2); Eosinophils Absolute Auto 200 /uL (0-450); Eosinophils Percent Auto 3.2 % (2-4); Hematocrit 37.5 % (36-46); Lymphocytes Absolute Auto 2000 /uL (1100-4500); Lymphocytes Percent Auto 26.4 % (25-40); Mean Corpuscular HGB Conc 34.6 % (30-36); Mean Corpuscular Hemoglobin 30.4 PG (26-34); Mean Corpuscular Volume 87.6 fL (80-100); Monocytes Absolute Auto 900 /uL (0-900); Monocytes Percent Auto 11.1 % (3-14); Neutrophils Absolute Auto 4500 /uL (1500-7000); Neutrophils Percent Auto 58.5 % (50-75); Platelet Count 320 X10^3/uL (150-400); Red Blood Cell Count 4.28 X10^6/uL (4.0-5.2); Red Cell Distribution Width 13.1 % (11.6-14.8); White Blood Cell Count 7.8 X10^3/uL (4.5-11.0)
[2023-01-27 09:31] LABS: Alanine Aminotransferase 22 IU/L (<35); Albumin 4.3 g/dL (3.5-5.0); Albumin Globulin Ratio 1.4 (1.0-2.8); Alkaline Phosphatase 91 U/L (38-126); Aspartate Aminotransferase 22 IU/L (14-36); BUN Creatinine Ratio 36.2 (6-22); Bilirubin Total 0.6 mg/dL (0.2-1.3); Blood Urea Nitrogen 25 mg/dL (7-17); Calcium 9.5 mg/dL (8.4-10.2); Carbon Dioxide 26 mmol/L (22-32); Chloride 105 mmol/L (98-107); Cholesterol 178 mg/dL (140-199); Estimated Glomerular Filt Rate > 60 mL/min (>60); Glucose 105 mg/dL (80-110); HDL Cholesterol 37 mg/dL (40-60); HEMOLYSIS < 15 (0-50); LDL Cholesterol Calculated 98 mg/dL (<100); Potassium 3.7 mmol/L (3.4-5.1); Sodium 139 mmol/L (137-145); Total Protein 7.3 g/dL (6.3-8.2); Triglycerides 216 mg/dL (35-150)
[2023-01-27 09:56] LABS: TSH w/ Reflex to FT4 1.06 uIU/mL (0.47-4.68)
[2023-01-27 11:47] LABS: Creatinine Urine Random 77.8 mg/dL
[2023-01-27 11:49] LABS: Microalbumi Creatinin Ratio Ur 34.7 ug/mg CR (<30); Microalbumin Urine Random 2.7 mg/dL (0-1.6)
== END ==
PROVIDERS: PCP Family Medicine; Referring Provider Family Medicine; Visit Provider Family Medicine
DX: E03.9 Hypothyroidism, unspecified (principal); I10 Essential (primary) hypertension; I77.3 Arterial fibromuscular dysplasia; R94.4 Abnormal results of kidney function studies
CPT/HCPCS: 36415; 80053; 80061; 82043; 82570; 84443; 85025

== ENCOUNTER 2023-02-11 07:39 | Emergency (ER) | payer MEDICARE, OTHER, SELFPAY ==
[2020-09-13 13:46] VITALS: BMI 26.8
[2023-02-11] VITALS (48 sets, daily range): BP systolic 103–171; BP diastolic 56–136; PULSE 90–121; RESP 8–24; TEMP 36.6; O2SAT 95–99; BMI 27.8
--- NOTE | 2023-02-11 08:18 | ED_ITS ---
HPI - Arrhythmia/Palpitations General Chief Complaint: Arrhythmia/Palpitations Stated Complaint: poss afib Time Seen by Provider: 02/11/23 07:48 Source: patient Mode of arrival: Ambulatory History of Present Illness HPI narrative: 77-year-old female with a history of atrial fibrillation. Is on Pradaxa. Has been on this medication for the past several months. Had her 1st episode in September this year. Is also on metoprolol. Has been taking all of her medications as directed. Overnight she states that she felt like she went into AFib. Started to have palpitations. No lightheadedness. No chest pain. No shortness of breath. 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 Patient has never been cardioverted. She spontaneously converted back to sinus rhythm during her 1st episode. Denies lower extremity swelling. No recent illnesses. She states she has had some loose stools recently but feels like that is actually improving. She is also had quite a bit of insomnia and anxiety at night over the past couple days as well. Related Data Home Medications Medication Instructions Recorded Confirmed multivitamin 1 tab PO DAILY 11/26/19 01/31/23 calcium glycerophosphate 65 mg 130 mg PO BID 10/09/20 01/31/23 tablet (Prelief) Previous Rx's Medication Instructions Recorded epinephrine 0.3 mg/0.3 mL 0.3 mg (0.3 mL) IM ONCE 11/03/20 injection, auto-injector (EpiPen Anaphylaxis #2 ea 2-Yoseph) amlodipine 5 mg tablet 7.5 mg (1.5 x 5 mg) PO DAILY #135 02/12/22 tabs levothyroxine 200 mcg tablet 200 mcg PO QDAY #90 tabs 02/12/22 atorvastatin 40 mg tablet See Rx Instructions .Route 07/09/22 .COMPLEX #90 tabs metoprolol succinate 200 mg 200 mg PO QDAY #90 tabs 10/24/22 tablet,extended release 24 hr (Toprol XL) metoprolol succinate 50 mg capsule 50 mg PO DAILY #90 ea 10/24/22 sprinkle, ext. release 24 hr losartan 100 mg tablet See Rx Instructions .Route 11/25/22 .COMPLEX #90 tabs dabigatran etexilate 150 mg 150 mg PO BID #60 caps 12/23/22 capsule (Pradaxa) sertraline 25 mg tablet (Zoloft) See Rx Instructions PO DAILY #90 01/31/23 tabs zolpidem 5 mg tablet 2.5 mg (1/2 x 5 mg) PO BEDTIME PRN 02/08/23 insomnia #20 tabs amiodarone 200 mg tablet 200 mg PO DAILY #60 tabs 02/11/23 lorazepam 0.5 mg tablet (Ativan) 0.5 mg PO BID PRN anxiety #14 tabs 02/11/23 Allergies Allergy/AdvReac Type Severity Reaction Status Date / Time Sulfa (Sulfonamide Allergy Severe THROAT Verified 01/31/23 09:14 Antibiotics) SWELLING Penicillins Allergy Intermediate HIVES Verified 01/31/23 09:14 adhesive Allergy Mild Rash Verified 01/31/23 09:14 hydrochlorothiazide AdvReac Mild RASH Verified 01/31/23 09:14 Review of Systems Review of Systems ROS Unobtainable: All systems reviewed & are unremarkable except as noted in HPI and below Patient History Medical History Fibromuscular dysplasia Microalbuminuria Frequent urination at night HLD (hyperlipidemia) Hypothyroidism (acquired) Hypertension Surgical History H/O pelvic surgery History of colonoscopy (10/19/19) Hx of bilateral cataract extraction Status post tubal ligation Social History household members: spouse Smoking Status: Never smoker alcohol intake: current Smoking Status: Never smoker alcohol intake frequency: other Substance Use Type: does not use Exam Initial Vital Signs Initial Vital Signs: Vital Signs Pulse Rate 100 H 02/11/23 07:50 Respiratory Rate 18 02/11/23 07:50 Blood Pressure 162/74 H 02/11/23 07:50 Pulse Oximetry 96 02/11/23 07:50 Oxygen Delivery Method Room Air 02/11/23 07:50 Const General: cooperative, comfortable and No ill appearing HENMT Head: normal to inspection and normocephalic Resp Effort & Inspection: normal respiratory effort Auscultation: clear to auscultation bilaterally Cardio Rate: regular rate Rhythm: abnormal rhythm GI Inspection: non-distended Skin General: no rashes or lesions noted Neuro General: patient alert, patient awake and moves all extremities Extrem General: No edema Procedures Cardioversion Consent Signed: Yes Indication: AFib Stability: Stable Number of attempts (shocks): 4 Joules used: 120 (Twice), 150 and 200 Cardiac rhythm post-cardioversion: Atrial fibrillation Procedural Sedation Consent signed: Yes Time out performed: Yes Indication: cardioversion ASA Class: II Mallampati Airway Classification: Class II Fentanyl: IV Fentanyl dose (mcg): 12 IV Propofol dose (mg): 70 Intraservice time/total sedation time (min): 15 ED Sedation Level: Moderate (Concious) Patient Tolerated Procedure: Well Complications: none Course Orders Ordered: ED Orders 02/11/23 07:48 EKG-12 Lead Stat 02/11/23 07:52 Complete Blood Count AUTO DIFF Stat Comprehensive Metabolic Panel Stat Lipase Stat Magnesium Stat Discontinued Medications Amiodarone HCl (Amiodarone 200 Mg Tablet) 400 mg PO NOW ONE Stop: 02/11/23 13:10 Fentanyl (Fentanyl 100 Mcg/2 Ml Inj) 12.5 mcg IV NOW ONE Stop: 02/11/23 08:19 Last Admin: 02/11/23 10:30 Dose: 12.5 mcg Documented By: BRIAN Fentanyl (Fentanyl 100 Mcg/2 Ml Inj) 12.5 mcg IV NOW ONE Stop: 02/11/23 11:35 Last Admin: 02/11/23 12:16 Dose: 12.5 mcg Documented By: BRIAN Amiodarone HCl/Dextrose (Nexterone) 150 mg in 100 mls @ 600 mls/hr IV NOW ONE; Protocol Stop: 02/11/23 11:15 Last Infusion: 02/11/23 11:33 Dose: Infused Documented By: Admin: 02/11/23 11:22 Dose: 600 mls/hr Documented By: BRIAN Lorazepam (Lorazepam 0.5 Mg Tablet) 0.5 mg PO NOW ONE Stop: 02/11/23 13:10 Propofol (Propofol 200 Mg/20 Ml Vial) 100 mg IV NOW ONE Stop: 02/11/23 08:19 Last Admin: 02/11/23 10:35 Dose: 70 mg Documented By: BRIAN Propofol (Propofol 200 Mg/20 Ml Vial) 100 mg IV NOW ONE Stop: 02/11/23 11:35 Last Admin: 02/11/23 12:18 Dose: 50 mg Documented By: BRIAN Vital Signs Vital signs: Vital Signs - 8 hr 02/11/23 07:50 02/11/23 07:55 02/11/23 08:31 Temperature 97.8 F Pulse Rate 100 H 94 H Respiratory Rate 18 14 Blood Pressure 162/74 H Pulse Oximetry 96 97 Oxygen Delivery Method Room Air Oxygen Flow Rate 02/11/23 08:42 02/11/23 08:42 02/11/23 08:45 Temperature Pulse Rate 109 H 95 H Respiratory Rate 10 L 15 Blood Pressure 145/81 H Pulse Oximetry 98 99 Oxygen Delivery Method Oxygen Flow Rate 02/11/23 08:45 02/11/23 08:49 02/11/23 08:50 Temperature Pulse Rate 92 H Respiratory Rate 10 L Blood Pressure 156/82 H 150/65 H Pulse Oximetry 98 Oxygen Delivery Method Oxygen Flow Rate 02/11/23 08:50 02/11/23 08:56 02/11/23 08:56 Temperature Pulse Rate 90 94 H Respiratory Rate 9 L 11 L Blood Pressure 154/85 H Pulse Oximetry 98 98 Oxygen Delivery Method Oxygen Flow Rate 02/11/23 09:00 02/11/23 09:00 02/11/23 09:05 Temperature Pulse Rate 95 H Respiratory Rate 10 L Blood Pressure 157/90 H 162/71 H Pulse Oximetry 99 Oxygen Delivery Method Oxygen Flow Rate 02/11/23 09:05 02/11/23 09:10 02/11/23 09:10 Temperature Pulse Rate 102 H 102 H Respiratory Rate 16 Blood Pressure 162/89 H Pulse Oximetry 99 99 Oxygen Delivery Method Oxygen Flow Rate 02/11/23 09:25 02/11/23 09:25 02/11/23 09:30 Temperature Pulse Rate 106 H Respiratory Rate Blood Pressure 156/88 H 145/70 H Pulse Oximetry 97 Oxygen Delivery Method Oxygen Flow Rate 02/11/23 09:30 02/11/23 09:35 02/11/23 09:35 Temperature Pulse Rate 93 H 94 H Respiratory Rate 12 13 Blood Pressure 153/70 H Pulse Oximetry 96 95 Oxygen Delivery Method Oxygen Flow Rate 02/11/23 09:40 02/11/23 09:40 02/11/23 09:45 Temperature Pulse Rate 114 H Respiratory Rate 10 L Blood Pressure 158/77 H 147/65 H Pulse Oximetry 97 Oxygen Delivery Method Oxygen Flow Rate 02/11/23 09:45 02/11/23 09:50 02/11/23 09:50 Temperature Pulse Rate 101 H 108 H Respiratory Rate 9 L 21 Blood Pressure 141/63 H Pulse Oximetry 96 98 Oxygen Delivery Method Oxygen Flow Rate 02/11/23 09:55 02/11/23 09:55 02/11/23 10:00 Temperature Pulse Rate 94 H Respiratory Rate 9 L Blood Pressure 158/74 H 135/64 Pulse Oximetry 97 Oxygen Delivery Method Oxygen Flow Rate 02/11/23 10:00 02/11/23 10:05 02/11/23 10:05 Temperature Pulse Rate 107 H 95 H Respiratory Rate 8 L 10 L Blood Pressure 153/71 H Pulse Oximetry 97 97 Oxygen Delivery Method Oxygen Flow Rate 02/11/23 10:10 02/11/23 10:10 02/11/23 10:15 Temperature Pulse Rate 95 H 105 H Respiratory Rate 13 9 L Blood Pressure 148/69 H Pulse Oximetry 97 97 Oxygen Delivery Method Oxygen Flow Rate 02/11/23 10:15 02/11/23 10:25 02/11/23 10:25 Temperature Pulse Rate 118 H Respiratory Rate 20 Blood Pressure 171/77 H 167/98 H Pulse Oximetry 98 Oxygen Delivery Method Oxygen Flow Rate 02/11/23 10:30 02/11/23 10:30 02/11/23 10:34 Temperature Pulse Rate 109 H Respiratory Rate 21 Blood Pressure 166/99 H 103/56 L Pulse Oximetry 98 Oxygen Delivery Method Oxygen Flow Rate 02/11/23 10:34 02/11/23 10:36 02/11/23 10:36 Temperature Pulse Rate 121 H 104 H Respiratory Rate 23 19 Blood Pressure 126/63 Pulse Oximetry 95 96 Oxygen Delivery Method Oxygen Flow Rate 02/11/23 10:40 02/11/23 10:40 02/11/23 10:45 Temperature Pulse Rate 104 H Respiratory Rate 15 Blood Pressure 153/65 H 142/75 H Pulse Oximetry 98 Oxygen Delivery Method Nasal Cannula Oxygen Flow Rate 2 02/11/23 10:45 02/11/23 10:50 02/11/23 10:50 Temperature Pulse Rate 103 H 101 H Respiratory Rate 11 L 11 L Blood Pressure 147/69 H Pulse Oximetry 97 96 Oxygen Delivery Method Room Air Oxygen Flow Rate 02/11/23 11:00 02/11/23 11:00 02/11/23 11:02 Temperature Pulse Rate 102 H 106 H Respiratory Rate 12 16 Blood Pressure 163/75 H Pulse Oximetry 97 Oxygen Delivery Method Oxygen Flow Rate 12/19/23 11:27 02/11/23 11:27 02/11/23 11:30 Temperature Pulse Rate 98 H Respiratory Rate 12 Blood Pressure 153/70 H 149/86 H Pulse Oximetry 97 Oxygen Delivery Method Oxygen Flow Rate 02/11/23 11:30 02/11/23 11:35 02/11/23 11:35 Temperature Pulse Rate 102 H 100 H Respiratory Rate 19 17 Blood Pressure 158/87 H Pulse Oximetry 97 97 Oxygen Delivery Method Oxygen Flow Rate 02/11/23 11:42 02/11/23 11:42 02/11/23 11:45 Temperature Pulse Rate 112 H Respiratory Rate 12 Blood Pressure 170/80 H 142/90 H Pulse Oximetry 98 Oxygen Delivery Method Oxygen Flow Rate 02/11/23 11:45 02/11/23 11:50 02/11/23 11:50 Temperature Pulse Rate 102 H 106 H Respiratory Rate 17 Blood Pressure 155/93 H Pulse Oximetry 97 98 Oxygen Delivery Method Oxygen Flow Rate 02/11/23 11:55 02/11/23 11:55 02/11/23 12:00 Temperature Pulse Rate 102 H Respiratory Rate 13 Blood Pressure 154/70 H 153/75 H Pulse Oximetry 98 Oxygen Delivery Method Oxygen Flow Rate 02/11/23 12:00 02/11/23 12:05 02/11/23 12:05 Temperature Pulse Rate 97 H 94 H Respiratory Rate 12 13 Blood Pressure 121/71 Pulse Oximetry 97 97 Oxygen Delivery Method Oxygen Flow Rate 02/11/23 12:10 02/11/23 12:10 02/11/23 12:16 Temperature Pulse Rate 106 H Respiratory Rate 13 Blood Pressure 135/84 169/136 H Pulse Oximetry 97 Oxygen Delivery Method Oxygen Flow Rate 02/11/23 12:16 02/11/23 12:21 02/11/23 12:21 Temperature Pulse Rate 108 H 98 H Respiratory Rate 18 16 Blood Pressure 125/71 Pulse Oximetry 98 95 Oxygen Delivery Method Oxygen Flow Rate 02/11/23 12:24 Temperature Pulse Rate 101 H Respiratory Rate 16 Blood Pressure Pulse Oximetry Oxygen Delivery Method Oxygen Flow Rate MDM - Arrhythmia/Palpitations Medical Records Attestation: I reviewed the patient's medical records. Lab Data Attestation: I reviewed the patient's lab results. 02/11/23 07:52 02/11/23 07:52 Labs: Lab Results 02/11/23 Range/Units 07:52 WBC 9.6 (4.5-11.0) X10^3/uL RBC 4.56 (4.0-5.2) X10^6/uL Hgb 13.6 (12.0-16.0) g/dL Hct 39.9 (36-46) % MCV 87.5 (80-100) fL MCH 29.7 (26-34) PG MCHC 34.0 (30-36) % RDW 12.9 (11.6-14.8) % Plt Count 378 (150-400) X10^3/uL Neut % (Auto) 67.3 (50-75) % Lymph % (Auto) 22.6 L (25-40) % [place] % (Auto) 8.7 (3-14) % Eos % (Auto) 0.9 L (2-4) % Baso % (Auto) 0.5 (0-2) % Neut # (Auto) 6400 (9244-4498) /uL Lymph # (Auto) 2200 (4466-8681) /uL [place] # (Auto) 800 (0-900) /uL Eos # (Auto) 100 (0-450) /uL Baso # (Auto) 100 (0-100) /uL Sodium 140 (137-145) mmol/L Potassium 3.7 (3.4-5.1) mmol/L Chloride 106 (98-107) mmol/L Carbon Dioxide 25 (22-32) mmol/L BUN 17 (7-17) mg/dL Creatinine 0.55 (0.52-1.04) mg/dL Estimated GFR > 60 (>60) mL/min BUN/Creatinine Ratio 30.9 H (6-22) Glucose 136 H (80-110) mg/dL Calcium 9.7 (8.4-10.2) mg/dL Magnesium 1.7 (1.6-2.3) mg/dL Total Bilirubin 0.6 (0.2-1.3) mg/dL AST 32 (14-36) IU/L ALT 22 (<35) IU/L Alkaline Phosphatase 98 (38-126) U/L Total Protein 7.9 (6.3-8.2) g/dL Albumin 4.6 (3.5-5.0) g/dL Globulin 3.3 (1.7-4.1) g/dL Albumin/Globulin Ratio 1.4 (1.0-2.8) Lipase 100 (23-300) U/L ECG Data Attestation: I personally reviewed and interpreted this ECG as follows: Interpretation: Atrial fibrillation Ventricular rate of 85 Normal axis Normal QRS Nonspecific ST T wave changes MDM Narrative Medical decision making narrative: Patient has a history of AFib. Is on Pradaxa. Has been taking her medications. Initial attempted cardioversion was unsuccessful. We initially tried to 120 joules and the patient was in sinus rhythm for approximately 10-20 seconds but then reverted back to AFib. We attempted 120 joules again and then 150 and then 200. Each of these times unsuccessful. Discussed the case with Dr. Barger with Cardiology who recommended giving 150 mg of amiodarone and then Re attempting cardioversion. We attempted this. After sedation with 50 mg of propofol attempted a 1 time cardioversion of 200 joules. Again unsuccessful. Patient has been relatively rate controlled with heart rates in the 95-110 range. Not hypotensive. Is relatively asymptomatic. Plan will be to send her home on amiodarone by mouth. She will continue to take her metoprolol. Continue to take her Pradaxa. She has a follow-up with Dr. Doreen davis in approximately 2 weeks. Patient is also having quite a bit of anxiety. Not necessarily related to what brought her in today but in general. Will try a short course of Ativan. She was given specific return precautions. She expressed understanding and agreement. Discharge Plan Departure Patient Disposition: Home Clinical Impression: Atrial fibrillation, Anxiety Instructions: DI for Atrial Fibrillation, DI for Anxiety -- Adult Activity Restrictions/Additional Instructions: Recommend that you continue to take all of your medications as directed. We are going to add a new medicine called amiodarone today. This medicine initially will be 400 mg (2 tablets) 2 times a day. You going to do this for 7 days. Then it will drop down to 200 mg (1 tablet) 2 times a day for 7 days and then will drop down once more to 200 mg (1 tablet) 1 time a day. You can also use the Ativan as needed for anxiety. Keep your scheduled appointment with Cardiology. Return to the emergency department for chest pain, shortness of breath, lightheadedness or feeling like your heart is racing. Prescriptions: New amiodarone 200 mg tablet 200 mg PO DAILY Qty: 60 3RF Rx Instructions: 2T BID for 7D then 1T Po BID for 7D then 1T PO QD after lorazepam [Ativan] 0.5 mg tablet 0.5 mg PO BID PRN (Reason: anxiety) Qty: 14 0RF No Action epinephrine [EpiPen 2-Yoseph] 0.3 mg/0.3 mL auto-injector 0.3 mg IM ONCE Qty: 2 0RF Rx Instructions: as a single dose levothyroxine 200 mcg tablet 200 mcg PO QDAY Qty: 90 3RF amlodipine 5 mg tablet 7.5 mg PO DAILY Qty: 135 3RF atorvastatin 40 mg tablet See Rx Instructions .ROUTE .COMPLEX Qty: 90 3RF Dose Instruction: TAKE 1 TABLET BY MOUTH EVERY DAY Rx Instructions: TAKE 1 TABLET BY MOUTH EVERY DAY metoprolol succinate 50 mg capsule,sprinkle,ER 24hr 50 mg PO DAILY Qty: 90 3RF Rx Instructions: take with 200mg capsule for a total of 250mg daily. metoprolol succinate [Toprol XL] 200 mg tablet extended release 24 hr 200 mg PO QDAY Qty: 90 3RF Rx Instructions: take with 50mg capsules for a total of 250mg daily. losartan 100 mg tablet See Rx Instructions .ROUTE .COMPLEX Qty: 90 0RF Dose Instruction: TAKE 1 TABLET BY MOUTH DAILY Rx Instructions: TAKE 1 TABLET BY MOUTH DAILY dabigatran etexilate [Pradaxa] 150 mg capsule 150 mg PO BID Qty: 60 1RF zolpidem 5 mg tablet 2.5 mg PO BEDTIME PRN (Reason: insomnia) Qty: 20 2RF multivitamin Tablet 1 tab PO DAILY Prelief 65 mg tablet 130 mg PO BID sertraline [Zoloft] 25 mg tablet See Rx Instructions PO DAILY Qty: 90 0RF Rx Instructions: t1 tab po daily for 1 week, then increase to T2 tabs daily thereafter Referrals: Jessee Leahy MD [Primary Care Provider] - Stand Alone Forms: Patient Portal/API
[2023-02-11 08:26] LABS: Add Manual Diff / Slide Review NO; Basophils Absolute Auto 100 /uL (0-100); Basophils Percent Auto 0.5 % (0-2); Eosinophils Absolute Auto 100 /uL (0-450); Eosinophils Percent Auto 0.9 % (2-4); Hematocrit 39.9 % (36-46); Hemoglobin 13.6 g/dL (12.0-16.0); Lymphocytes Absolute Auto 2200 /uL (1100-4500); Lymphocytes Percent Auto 22.6 % (25-40); Mean Corpuscular Hemoglobin 29.7 PG (26-34); Mean Corpuscular Volume 87.5 fL (80-100); Monocytes Absolute Auto 800 /uL (0-900); Monocytes Percent Auto 8.7 % (3-14); Neutrophils Absolute Auto 6400 /uL (1500-7000); Neutrophils Percent Auto 67.3 % (50-75); Platelet Count 378 X10^3/uL (150-400); Red Blood Cell Count 4.56 X10^6/uL (4.0-5.2); Red Cell Distribution Width 12.9 % (11.6-14.8); White Blood Cell Count 9.6 X10^3/uL (4.5-11.0)
[2023-02-11 08:33] LABS: Alanine Aminotransferase 22 IU/L (<35); Albumin 4.6 g/dL (3.5-5.0); Albumin Globulin Ratio 1.4 (1.0-2.8); Alkaline Phosphatase 98 U/L (38-126); Aspartate Aminotransferase 32 IU/L (14-36); BUN Creatinine Ratio 30.9 (6-22); Bilirubin Total 0.6 mg/dL (0.2-1.3); Blood Urea Nitrogen 17 mg/dL (7-17); Calcium 9.7 mg/dL (8.4-10.2); Carbon Dioxide 25 mmol/L (22-32); Chloride 106 mmol/L (98-107); Estimated Glomerular Filt Rate > 60 mL/min (>60); Globulin 3.3 g/dL (1.7-4.1); Glucose 136 mg/dL (80-110); HEMOLYSIS < 15 (0-50); Lipase 100 U/L (23-300); Magnesium 1.7 mg/dL (1.6-2.3); Potassium 3.7 mmol/L (3.4-5.1); Sodium 140 mmol/L (137-145); Total Protein 7.9 g/dL (6.3-8.2)
[2023-02-11] MEDS: fentaNYL 100 MCG/2 ML INJ 12.5 MCG IV ×2 (10:30→12:16)
[2023-02-11] MEDS: propofoL 200 MG/20 ML VIAL 100 MG IV ×2 (10:35→12:18)
[2023-02-11] MEDS: AMIODARONE 150 MG/100 ML PIGGYBACK 600 MG IV (11:22)
--- NOTE | 2023-02-11 11:49 | PC.NURSE ---
Late entry, attempt to cardiovert pt from afib rvr to sinus rhythm at [address] Jason. Pt was shocked 3 times with proper sedation. Cardioversion unsuccessful. Pt tolerated well with no complications. Pt denies any pain
[2023-02-11] MEDS: AMIODARONE 200 MG TABLET 400 MG PO (13:20)
[2023-02-11] MEDS: LORazepam 0.5 MG TABLET PO (13:20)
== END 2023-02-11 13:33 | disposition home or self-care (01) ==
PROVIDERS: Emergency Provider Emergency Medicine; PCP Family Medicine
DX: I48.91 Unspecified atrial fibrillation (principal); F41.9 Anxiety disorder, unspecified; Z79.01 Long term (current) use of anticoagulants
CPT/HCPCS: 36415; 80053; 83690; 83735; 85025; 92960; 93005; 93010; 96374; 99152; 99285; J0282; J2704; J3010

== ENCOUNTER → 2023-02-21 09:59 | Outpatient (CLI) | payer MEDICARE, OTHER, SELFPAY ==
[2020-09-13 13:46] VITALS: BMI 26.8
--- NOTE | 2023-02-21 10:00 | DI.MG.S_ITS ---
BILATERAL DIGITAL SCREENING MAMMOGRAM 3D/2D WITH CAD: 02/21/2023 CLINICAL: Routine screening. Family history of breast cancer. Comparison is made to exams dated: 12/18/2021 mammogram, 12/07/2020 mammogram, and 09/23/2019 mammogram - [facility]. There are scattered areas of fibroglandular density in both breasts (category b / 25%-50% glandular tissue). Current study was also evaluated with a Computer Aided Detection (CAD) system. There are benign vascular calcifications in both breasts. No significant masses, calcifications, or other findings are seen in either breast. There has been no significant interval change. IMPRESSION: BENIGN There is no mammographic evidence of malignancy. A 1 year screening mammogram is recommended. Based on the Tyrer Cuzick model (a risk assessment model) the patient's lifetime risk is 4.3% and her 10 year risk is 0.0%. According to the ACR, ACS, and NCCN guidelines, an annual breast MRI exam along with mammogram is recommended if the patient's lifetime risk is 20% or greater. This exam was interpreted at Station ID: [id number]. NOTE: For mammograms, a report in lay terms will be sent to the patient. Approximately 15% of breast malignancies will not be visualized mammographically. In the management of a palpable breast mass, a negative mammogram must not discourage biopsy of a clinically suspicious lesion. Electronically Signed By: Javier houser/joshua:02/21/2023 12:23:48 letter sent: Normal Exam ACR BI-RADS Category 2: Benign Finding(s) [id number]
== END ==
PROVIDERS: PCP Family Medicine; Referring Provider Family Medicine; Visit Provider Family Medicine
DX: Z12.31 Encounter for screening mammogram for malignant neoplasm of breast (principal); Z80.3 Family history of malignant neoplasm of breast
CPT/HCPCS: 77063; 77067

== ENCOUNTER → 2023-06-16 08:29 | Outpatient (CLI) | payer MEDICARE, OTHER, SELFPAY ==
[2020-09-13 13:46] VITALS: BMI 26.8
[2023-06-16 10:01] LABS: Alanine Aminotransferase 20 IU/L (<35); Albumin 4.5 g/dL (3.5-5.0); Alkaline Phosphatase 87 U/L (38-126); Aspartate Aminotransferase 22 IU/L (14-36); BUN Creatinine Ratio 27.7 (6-22); Bilirubin Total 0.5 mg/dL (0.2-1.3); Blood Urea Nitrogen 23 mg/dL (7-17); Calcium 9.5 mg/dL (8.4-10.2); Carbon Dioxide 25 mmol/L (22-32); Chloride 108 mmol/L (98-107); Cholesterol 169 mg/dL (140-199); Estimated Glomerular Filt Rate > 60 mL/min (>60); Globulin 2.3 g/dL (1.7-4.1); Glucose 102 mg/dL (80-110); HDL Cholesterol 53 mg/dL (40-60); HEMOLYSIS < 15 (0-50); LDL Cholesterol Calculated 87 mg/dL (<100); Potassium 4.3 mmol/L (3.4-5.1); Sodium 140 mmol/L (137-145); Total Protein 6.8 g/dL (6.3-8.2); Triglycerides 143 mg/dL (35-150)
[2023-06-16 10:27] LABS: Thyroid Stimulating Hormone 1.41 uIU/mL (0.47-4.68)
== END ==
PROVIDERS: PCP Family Medicine; Referring Provider Internal Medicine Cardiovascular Disease; Visit Provider Internal Medicine Cardiovascular Disease
DX: E78.5 Hyperlipidemia, unspecified (principal); Z79.899 Other long term (current) drug therapy
CPT/HCPCS: 36415; 80053; 80061; 84443

== ENCOUNTER → 2023-06-25 11:22 | Outpatient (CLI) | payer MEDICARE, OTHER, SELFPAY ==
[2020-09-13 13:46] VITALS: BMI 26.8
== END ==
PROVIDERS: PCP Family Medicine; Referring Provider Internal Medicine Cardiovascular Disease; Visit Provider Internal Medicine Cardiovascular Disease
DX: Z79.899 Other long term (current) drug therapy (principal); J98.8 Other specified respiratory disorders
CPT/HCPCS: 94060; 94726; 94729

== ENCOUNTER → 2023-07-29 17:05 | Outpatient (CLI) | payer MEDICARE, OTHER, SELFPAY ==
[2020-09-13 13:46] VITALS: BMI 26.8
== END ==
PROVIDERS: PCP Family Medicine; Visit Provider Student in an Organized Health Care Education/Training Program
DX: R30.0 Dysuria (principal)
CPT/HCPCS: 87086

== ENCOUNTER → 2023-09-30 09:45 | Outpatient (CLI) | payer MEDICARE, OTHER, SELFPAY ==
[2020-09-13 13:46] VITALS: BMI 26.8
--- NOTE | 2023-09-30 09:48 | DI.CT.S_ITS ---
PROCEDURE: CT ANGIO CHEST INDICATIONS: Paroxysmal atrial fibrillation TECHNIQUE: After the administration of intravenous contrast, 2 mm thick sections acquired from the pulmonary apices to the posterior costophrenic angles. 3-dimensional maximum intensity projection (MIP) coronal and sagittal reformats were then acquired through the thorax. For radiation dose reduction, the following was used: automated exposure control, adjustment of mA and/or kV according to patient size. COMPARISON: None. FINDINGS: Image quality: Diagnostic. Pulmonary arteries: Pulmonary arteries are unremarkable in size, and demonstrate no intraluminal filling defects to suggest central pulmonary embolism. Lower Neck: No enlarged lymph nodes. Thyroid: No thyroid nodules which require sonographic follow up, per consensus guidelines. Axillae: No enlarged lymph nodes. Chest Wall: Unremarkable. Bones: Unremarkable. Lungs and Pleura: Emphysematous and chronic fibrotic lung changes. No pneumothorax or pleural effusions. 7 mm density near the right major fissure, does not likely represent perifissural lymph node. Otherwise no consolidation or suspicious nodules Heart: Cardiomegaly with moderate enlargement of the left atrium. No pericardial effusion. Thoracic Vessels: No aortic aneurysm. Severe atherosclerotic vascular calcifications of the aorta. No thoracic or proximal abdominal aortic aneurysm seen Mediastinum and [place]: No enlarged lymph nodes. Esophagus: No wall thickening. No hiatal hernia. Upper Abdomen: Numerous nonobstructive stones of the kidneys bilaterally up to 3 mm. Dilated right extrarenal pelvis with no definite hydronephrosis. 3.5 cm cystic lesion of the right kidney, measuring 12 Hounsfield units, likely simple cyst with no internal enhancement.2 IMPRESSION: 1. Cardiomegaly with moderately enlarged left atrium 2. No pulmonary embolism 3. Severely atherosclerotic aorta 4. Emphysematous lung changes with 7 mm lung nodule next to right major fissure. Recommend follow-up low-dose noncontrast CT chest in 3-6 months then at 9-12 months and 24 months if no change 5. Right renal cystic lesion, likely simple cyst. Fleischner Society criteria for lung nodule followup. Nodule size (mm)Low-risk patientHigh-risk patient<=4No follow-up needed.Follow-up at 12 months; if no change, no further follow-up.>[id number] CT at 12 months; if no change, no further follow-up needed.Initial follow-up CT at 6-12 months, then 18-24 months if no change.>6-8Initial follow-up CT at 6-12 months, then 18-24 months if no change.Initial follow-up CT at 3-6 months, then 9-12 months and 24 months if no change.>8Follow-up CT at 3,9 and 24 months or PET and/or biopsySame as for low-risk patientsNon-solid (ground-glass) or partly solid nodules may require longer follow-up to exclude indolent adenocarcinoma. Dictated by: Nayan De La Cruz M.D. on 09/30/2023 at 14:16 Approved by: Nayan eD La Cruz M.D. on 09/30/2023 at 14:43
[2023-09-30 10:18] LABS: Estimated Glomerular Filt Rate > 60 mL/min (>60)
== END ==
PROVIDERS: Radiology Diagnostic Radiology; PCP Family Medicine; Referring Provider Internal Medicine Cardiovascular Disease; Visit Provider Internal Medicine Cardiovascular Disease
DX: I48.0 Paroxysmal atrial fibrillation (principal); R10.9 Unspecified abdominal pain; I51.7 Cardiomegaly; N20.0 Calculus of kidney; I70.0 Atherosclerosis of aorta; R91.1 Solitary pulmonary nodule; N28.9 Disorder of kidney and ureter, unspecified
CPT/HCPCS: 36415; 71275; 82565; Q9967

== ENCOUNTER → 2023-10-10 10:10 | Outpatient (CLI) | payer MEDICARE, OTHER, SELFPAY ==
[2020-09-13 13:46] VITALS: BMI 26.8
[2023-10-11 03:37] LABS: Alpha 1 Anti Trypsin 149 mg/dL (101-187)
== END ==
PROVIDERS: PCP Family Medicine; Referring Provider Family Medicine; Visit Provider Family Medicine
DX: J43.9 Emphysema, unspecified (principal)
CPT/HCPCS: 36415; 82103

== ENCOUNTER → 2023-10-24 08:10 | Outpatient (CLI) | payer MEDICARE, OTHER, SELFPAY ==
[2023-10-21 15:39] VITALS: BMI 26.8
[2023-10-24 10:05] LABS: Add Manual Diff / Slide Review NO; Basophils Absolute Auto 0 /uL (0-100); Basophils Percent Auto 0.7 % (0-2); Eosinophils Absolute Auto 100 /uL (0-450); Eosinophils Percent Auto 1.8 % (2-4); Hematocrit 37.6 % (36-46); Hemoglobin 12.7 g/dL (12.0-16.0); Lymphocytes Absolute Auto 1400 /uL (1100-4500); Lymphocytes Percent Auto 20.6 % (25-40); Mean Corpuscular HGB Conc 33.7 % (30-36); Mean Corpuscular Hemoglobin 31.2 PG (26-34); Mean Corpuscular Volume 92.7 fL (80-100); Monocytes Absolute Auto 700 /uL (0-900); Monocytes Percent Auto 10.6 % (3-14); Neutrophils Absolute Auto 4600 /uL (1500-7000); Neutrophils Percent Auto 66.3 % (50-75); Platelet Count 299 X10^3/uL (150-400); Red Blood Cell Count 4.06 X10^6/uL (4.0-5.2); White Blood Cell Count 6.9 X10^3/uL (4.5-11.0)
[2023-10-24 10:59] LABS: Thyroid Stimulating Hormone 1.11 uIU/mL (0.47-4.68)
[2023-10-24 11:01] LABS: Alanine Aminotransferase 19 IU/L (<35); Albumin 4.2 g/dL (3.5-5.0); Alkaline Phosphatase 89 U/L (38-126); Aspartate Aminotransferase 20 IU/L (14-36); BUN Creatinine Ratio 28.3 (6-22); Bilirubin Total 0.5 mg/dL (0.2-1.3); Blood Urea Nitrogen 26 mg/dL (7-17); Calcium 9.3 mg/dL (8.4-10.2); Carbon Dioxide 24 mmol/L (22-32); Chloride 106 mmol/L (98-107); Cholesterol 135 mg/dL (140-199); Estimated Glomerular Filt Rate > 60 mL/min (>60); Globulin 2.1 g/dL (1.7-4.1); Glucose 97 mg/dL (80-110); HDL Cholesterol 45 mg/dL (40-60); HEMOLYSIS < 15 (0-50); LDL Cholesterol Calculated 66 mg/dL (<100); Potassium 4.3 mmol/L (3.4-5.1); Sodium 140 mmol/L (137-145); Total Protein 6.3 g/dL (6.3-8.2); Triglycerides 122 mg/dL (35-150)
== END ==
PROVIDERS: PCP Family Medicine; Referring Provider Internal Medicine Cardiovascular Disease; Visit Provider Internal Medicine Cardiovascular Disease
DX: E78.5 Hyperlipidemia, unspecified (principal); I10 Essential (primary) hypertension; I48.0 Paroxysmal atrial fibrillation
CPT/HCPCS: 36415; 80053; 80061; 84443; 85025

== ENCOUNTER → 2024-03-11 13:17 | Outpatient (CLI) | payer MEDICARE, OTHER, SELFPAY ==
[2023-10-21 15:39] VITALS: BMI 26.8
--- NOTE | 2024-03-11 13:19 | DI.MG.S_ITS ---
BILATERAL DIGITAL SCREENING MAMMOGRAM 3D/2D WITH CAD: 03/11/2024 CLINICAL: Routine screening. Family history of breast cancer. Comparison is made to exams dated: 02/21/2023 mammogram, 12/18/2021 mammogram, 12/07/2020 mammogram, and 09/23/2019 mammogram - [facility]. There are scattered areas of fibroglandular density (category b / 25%-50% glandular tissue). Current study was also evaluated with a Computer Aided Detection (CAD) system. There are benign vascular calcifications in both breasts. No significant masses, calcifications, or other findings are seen in either breast. There has been no significant interval change. IMPRESSION: BENIGN There is no mammographic evidence of malignancy. A 1 year screening mammogram is recommended. Based on the Tyrer Cuzick model (a risk assessment model) the patient's lifetime risk is 3.6% and her 10 year risk is 0.0%. According to the ACR, ACS, and NCCN guidelines, an annual breast MRI exam along with mammogram is recommended if the patient's lifetime risk is 20% or greater. This exam was interpreted at Station ID: [id number]. NOTE: For mammograms, a report in lay terms will be sent to the patient. Approximately 15% of breast malignancies will not be visualized mammographically. In the management of a palpable breast mass, a negative mammogram must not discourage biopsy of a clinically suspicious lesion. Electronically Signed By: Slim harper/joshua:03/11/2024 18:13:51 letter sent: Normal Exam ACR BI-RADS Category 2: Benign
== END ==
PROVIDERS: PCP Family Medicine; Referring Provider Family Medicine; Visit Provider Family Medicine
DX: Z12.31 Encounter for screening mammogram for malignant neoplasm of breast (principal); R92.1 Mammographic calcification found on diagnostic imaging of breast; Z80.3 Family history of malignant neoplasm of breast
CPT/HCPCS: 77063; 77067

== ENCOUNTER → 2024-04-12 10:15 | Outpatient (CLI) | payer MEDICARE, OTHER, SELFPAY ==
[2023-10-21 15:39] VITALS: BMI 26.8
--- NOTE | 2024-04-12 10:17 | DI.CT.S_ITS ---
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 1 mm thick dynamic expiratory images acquired through the upper, mid, and lower lungs. 1.0 mm thick axial sections acquired from the ramy to the posterior costophrenic angles in the prone end-inspiration position. For radiation dose reduction, the following was used: automated exposure control, adjustment of mA and/or kV according to patient size. COMPARISON: [facility], CT, CT ANGIO CHEST, 09/30/2023, 10:37. FINDINGS: Image quality: Diagnostic. Lower Neck: No enlarged lymph nodes. Thyroid: No thyroid nodules which require sonographic follow up, per consensus guidelines. Axillae: No enlarged lymph nodes. Chest Wall: Unremarkable. Bones: No suspicious osseous lesion. Lungs and Pleura: No pneumothorax or pleural effusions. Mild peripheral reticular thickening, mildly improved on the prone sequences. Mild pleural apical scarring. -Right lower lobe ground glass pulmonary nodule measuring 0.5 cm, (2/177). -Right middle lobe pulmonary nodule measuring 0.5 cm, (2/188). -Right lower lobe pulmonary nodule measuring 0.3 cm, (2/241). A few tree and bud nodules. Central airways are clear. No air trapping. No honeycombing. Heart: Heart size is normal. No pericardial effusion. Thoracic Vessels: The aorta and pulmonary arteries demonstrate normal size. Mediastinum and [place]: No enlarged lymph nodes. Esophagus: No wall thickening. No hiatal hernia. Upper Abdomen: Calcified granuloma. Small left kidney stone. IMPRESSION: 1. Mild peripheral reticular thickening which persists on the prone series. This could represent mild interstitial lung disease. No interval change compared to September 2023. 2. A few small pulmonary nodules measuring 0.5 cm or less. No adenopathy seen. 3. Small left kidney stone. Dictated by: Slim Florian M.D. on 04/12/2024 at 12:34 Approved by: Slim Florian M.D. on 04/12/2024 at 13:40
== END ==
PROVIDERS: PCP Family Medicine; Referring Provider Internal Medicine Critical Care Medicine; Visit Provider Internal Medicine Critical Care Medicine
DX: R91.8 Other nonspecific abnormal finding of lung field (principal); N20.0 Calculus of kidney
CPT/HCPCS: 71250

== ENCOUNTER → 2024-04-29 16:28 | Outpatient (CLI) | payer MEDICARE, OTHER, SELFPAY ==
[2023-10-21 15:39] VITALS: BMI 26.8
[2024-04-29 18:47] LABS: Appearance Urine UA CLEAR; Bilirubin Urine UA NEGATIVE (NEGATIVE); Color Urine UA YELLOW; Glucose Urine UA NEGATIVE (Negative); Ketones Urine UA NEGATIVE (NEGATIVE); Leukocyte Esterase Urine UA 2+ (NEGATIVE); Nitrite Urine UA NEGATIVE (Negative); Occult Blood Urine UA NEGATIVE (Negative); Protein Urine UA NEGATIVE (Negative); Urobilinogen Urine UA 0.2 E.U./dL (0.2)
[2024-04-29 19:03] LABS: pH Urine UA 5.5 (4.5-8.0)
[2024-04-29 19:04] LABS: Bacteria Urine None Seen; Culture Indicated Urine Specimen Cultured; RBC Urine None Seen (0-5/HPF); Squamous Epithelial Cell Urine 0-1 /HPF (0-5/HPF); Transitional Epi Cells Urine 0-1/HPF (0-5/HPF); Urine Volume 10mL (spun); WBC Urine 5-10/HPF (0-5/HPF)
== END ==
PROVIDERS: PCP Family Medicine; Visit Provider Obstetrics & Gynecology Gynecology
DX: N95.2 Postmenopausal atrophic vaginitis (principal)
CPT/HCPCS: 81001; 87086

== ENCOUNTER → 2024-06-09 14:20 | Outpatient (CLI) | payer MEDICARE, OTHER, SELFPAY ==
[2023-10-21 15:39] VITALS: BMI 26.8
[2024-06-09 19:38] LABS: BUN Creatinine Ratio 33.8 (6-22); Blood Urea Nitrogen 26 mg/dL (7-17); Calcium 9.6 mg/dL (8.4-10.2); Carbon Dioxide 22 mmol/L (22-32); Chloride 107 mmol/L (98-107); Estimated Glomerular Filt Rate > 60 mL/min (>60); Glucose 119 mg/dL (80-110); HEMOLYSIS 15 (0-50); Potassium 4.4 mmol/L (3.4-5.1); Sodium 141 mmol/L (137-145)
== END ==
LOC: LAB 14:22
PROVIDERS: PCP Family Medicine; Referring Provider Nurse Practitioner Family; Visit Provider Nurse Practitioner Family
DX: I48.0 Paroxysmal atrial fibrillation (principal)
CPT/HCPCS: 36415; 80048

== ENCOUNTER → 2024-08-23 16:54 | Outpatient (ROUT) | payer MEDICARE, OTHER, SELFPAY ==
[2023-10-21 15:39] VITALS: BMI 26.8
[2024-08-23 17:02] LABS: Appearance Urine UA CLEAR; Bilirubin Urine UA NEGATIVE (NEGATIVE); Color Urine UA YELLOW; Glucose Urine UA NEGATIVE (Negative); Ketones Urine UA NEGATIVE (NEGATIVE); Leukocyte Esterase Urine UA 1+ (NEGATIVE); Nitrite Urine UA NEGATIVE (Negative); Occult Blood Urine UA NEGATIVE (Negative); Protein Urine UA NEGATIVE (Negative); Specific Gravity Urine UA 1.025 (1.000-1.035); Urobilinogen Urine UA 0.2 E.U./dL (0.2)
[2024-08-23 17:03] LABS: pH Urine UA 5.5 (4.5-8.0)
[2024-08-23 17:09] LABS: Bacteria Urine Moderate (10-30); Culture Indicated Urine Specimen Cultured; Mucus Urine 1+ (Negative); RBC Urine 0-1/HPF (0-5/HPF); Squamous Epithelial Cell Urine 1-5 /HPF (0-5/HPF); Urine Volume 10mL (spun); WBC Urine 1-5/HPF (0-5/HPF)
== END ==
PROVIDERS: PCP Family Medicine; Visit Provider Obstetrics & Gynecology Gynecology
DX: R30.9 Painful micturition, unspecified (principal)
CPT/HCPCS: 81001; 87086; 87147

== ENCOUNTER → 2024-11-13 09:16 | Outpatient (CLI) | payer MEDICARE, OTHER, SELFPAY ==
[2024-09-22 11:18] VITALS: BMI 26.8
== END ==
LOC: LAB 09:17
PROVIDERS: PCP Family Medicine; Visit Provider Physician Assistant Medical
DX: R30.0 Dysuria (principal)
CPT/HCPCS: 87086; 87147

== ENCOUNTER → 2024-11-21 09:45 | Outpatient (CLI) | payer MEDICARE, OTHER, SELFPAY ==
[2024-09-22 11:18] VITALS: BMI 26.8
== END ==
PROVIDERS: PCP Family Medicine; Visit Provider Chiropractor
DX: R30.0 Dysuria (principal)
CPT/HCPCS: 81002; 87077; 87086; 87147

== ENCOUNTER → 2024-12-09 08:35 | Outpatient (CLI) | payer MEDICARE, OTHER, SELFPAY ==
[2024-09-22 11:18] VITALS: BMI 26.8
[2024-12-09 10:59] LABS: Blood Urea Nitrogen 30 mg/dL (7-17); Calcium 9.5 mg/dL (8.4-10.2); Carbon Dioxide 25 mmol/L (22-32); Chloride 105 mmol/L (98-107); Estimated Glomerular Filt Rate > 60 mL/min (>60); Glucose 101 mg/dL (70-99); HEMOLYSIS < 15 (0-50); Potassium 4.1 mmol/L (3.4-5.1); Sodium 140 mmol/L (137-145)
== END ==
PROVIDERS: PCP Family Medicine; Referring Provider Family Medicine; Visit Provider Nurse Practitioner Family
DX: I48.0 Paroxysmal atrial fibrillation (principal)
CPT/HCPCS: 36415; 80048

== ENCOUNTER → 2025-01-31 09:19 | Outpatient (CLI) | payer MEDICARE, OTHER, SELFPAY ==
[2024-09-22 11:18] VITALS: BMI 26.8
[2025-01-31 10:26] LABS: Add Manual Diff / Slide Review NO; Hematocrit 38.3 % (36-46); Hemoglobin 13.1 g/dL (12.0-16.0); Lymphocytes Absolute Auto 1900 /uL (1100-4500); Mean Corpuscular HGB Conc 34.1 % (30-36); Mean Corpuscular Hemoglobin 30.9 PG (26-34); Mean Corpuscular Volume 90.5 fL (80-100); Platelet Count 294 X10^3/uL (150-400)
[2025-01-31 10:59] LABS: Alanine Aminotransferase 30 IU/L (<35); Albumin 4.4 g/dL (3.5-5.0); Albumin Globulin Ratio 1.8 (1.0-2.8); Alkaline Phosphatase 87 U/L (38-126); Blood Urea Nitrogen 20 mg/dL (7-17); Calcium 9.4 mg/dL (8.4-10.2); Carbon Dioxide 24 mmol/L (22-32); Chloride 105 mmol/L (98-107); Cholesterol 161 mg/dL (140-199); Estimated Glomerular Filt Rate > 60 mL/min (>60); Globulin 2.5 g/dL (1.7-4.1); Glucose 108 mg/dL (70-99); HDL Cholesterol 51 mg/dL (40-60); HEMOLYSIS 16 (0-50); Potassium 4.2 mmol/L (3.4-5.1); Sodium 138 mmol/L (137-145); Total Protein 6.9 g/dL (6.3-8.2); Triglycerides 167 mg/dL (35-150)
[2025-01-31 11:14] LABS: Appearance Urine UA CLEAR; Bilirubin Urine UA NEGATIVE (NEGATIVE); Color Urine UA YELLOW; Glucose Urine UA NEGATIVE (Negative); Ketones Urine UA NEGATIVE (NEGATIVE); Leukocyte Esterase Urine UA 1+ (NEGATIVE); Nitrite Urine UA NEGATIVE (Negative); Occult Blood Urine UA NEGATIVE (Negative); Protein Urine UA NEGATIVE (Negative); Specific Gravity Urine UA 1.015 (1.000-1.035); Urobilinogen Urine UA 0.2 E.U./dL (0.2)
[2025-01-31 11:24] LABS: pH Urine UA 6.0 (4.5-8.0)
[2025-01-31 11:25] LABS: TSH w/ Reflex to FT4 1.28 uIU/mL (0.47-4.68)
[2025-01-31 11:28] LABS: Culture Indicated Urine Specimen Cultured
== END ==
PROVIDERS: PCP Family Medicine; Referring Provider Family Medicine; Visit Provider Family Medicine
DX: E03.9 Hypothyroidism, unspecified (principal); E78.2 Mixed hyperlipidemia; I10 Essential (primary) hypertension; N39.0 Urinary tract infection, site not specified
CPT/HCPCS: 36415; 80053; 80061; 81003; 81015; 84443; 85025; 87086